=== PATIENT | male | born 1965 ===

== ENCOUNTER 2017-02-13 12:43 | Inpatient (IN) ==
[2017-02-13] MEDS ORDERED: ONDANSETRON 4 MG/2 ML VIAL IV PRN (15:40)
[2017-02-13] MEDS ORDERED: DEXTROSE 50% 25 GM/50 ML SYRINGE IV PRN (15:40)
[2017-02-13] MEDS ORDERED: GLUCAGON 1 MG VIAL IM PRN (15:40)
[2017-02-13] MEDS: ACETAMINOPHEN 325 MG TABLET PO PRN (15:53)
[2017-02-13 16:15] LABS: Basophils # 0.1 10*3/uL (0.0-0.2); Basophils % 0.3 % (0.0-0.8); Eosinophils # 0.1 10*3/uL (0.0-0.87); Eosinophils % 0.5 % (0.00-10.9); Hematocrit 33.3 VOL% (42.0-52.0); Hemoglobin 10.5 GM/DL (14.0-18.0); Immature Granulocytes % 0.9 %; Immature Granulocytes Absolute 0.16 #; Lymphocytes # 1.4 10*3/uL (1.4-4.0); Lymphocytes % 7.6 % (21.2-54.2); Mean Corpuscular HGB Conc 31.5 GM/DL (32-36); Mean Corpuscular Hemoglobin 27 PG (27-34); Mean Corpuscular Volume 86.3 FL (87-102); Mean Platelet Volume 9.4 FL (9.6-12.0); Monocytes # 1.7 10*3/uL (0.11-0.8); Monocytes % 9.2 % (1.7-12.7); Neutrophils # 14.8 10*3/uL (1.4-7.4); Neutrophils % 81.5 % (38.7-73.9); Platelet Count 293 T/CUMM (130-400); Red Blood Count 3.86 MC/CUMM (3.8-5.5); Red Cell Distribution Width 15.1 % (9.3-17.3); White Blood Count 18.2 T/CUMM (4-12)
--- NOTE | 2017-02-13 16:46 | Hospitalist History & Physical ---
Assessment and Plan - Time spent with patient Time spent with patient: Greater than 30 minutes (1) Diabetic foot infection Status: Acute Assessment and plan: Patient is a diabetic foot to the plantar surface of his right foot. The wound was recently debrided [address] Ramirez Crain. Patient does have leukocytosis (WBC 18.2) and bilateral lower extremities are warm to the touch. This could indicate developing cellulitis. We will get blood cultures 2. And venous Dopplers of the bilateral extremities for good measure. Current Visit: No (2) Leukocytosis Status: Acute Assessment and plan: As above. Will start empiric antibiotics and await results of blood cultures. Current Visit: Yes (3) Hypertension Status: Chronic Assessment and plan: Monitor BP. Continue home medications Current Visit: No Qualifiers: Hypertension type: essential hypertension Qualified Code(s): I10 - Essential (primary) hypertension (4) IDDM (insulin dependent diabetes mellitus) Status: Chronic Assessment and plan: Accu-Cheks ACHS. Sliding scale insulin per protocol. Hemoglobin A1c is 8.1%. Current Visit: No History of Present Illness Chief complaint: bilateral LE pain History of present illness: Mr. Melton is a 51 year old [place] male with a past medical history significant for diabetes mellitus, hypertension, rheumatoid arthritis and peripheral neuropathy who presents to [place] today as a transfer from [facility] for further evaluation of bilateral lower extremity pain status post debridement of ulcer of the right foot. Patient was recently seen by Dr. Ramirez Crain for debridement of right foot ulcer 6 days ago. He reports pain in his lower extremities bilaterally having onset last night. He describes this pain as "sharp" and ascends from the dorsum of his foot to the distal end of his patella. On exam, the patient does voice pain in his legs bilaterally, headache , subjective fever, chills, diarrhea and nausea. Lab work is significant for: WBC 18.2, hemoglobin 10.5, hematocrit 33.3, platelets 293, sodium 143, potassium 4.3, chloride 110, BUN 30, creatinine 1.3, serum glucose 108, hemoglobin A1c 8.1. Case has been discussed with Dr. Malave and the patient has been admitted to the hospital medicine service for further evaluation and treatment. We will consult wound care for management of diabetic ulcer. CODE STATUS was discussed; patient is a full code. Home medications have been reviewed and reconciled. Home Medications Medication Instructions Recorded Confirmed Type Aspirin [Ecotrin] 81 mg PO DAILY 01/28/16 08/08/16 History Gabapentin 600 mg PO TID 01/28/16 08/08/16 History Insulin Aspart [NovoLOG FlexPen] 20 unit SUBCUT DIRECTED 01/28/16 08/08/16 History Losartan Potassium 100 mg PO DAILY 01/28/16 08/08/16 History hydroCHLOROthiazide 25 mg PO DAILY 01/28/16 08/08/16 History [Hydrochlorothiazide] Omeprazole 20 mg PO DAILY 02/13/17 02/13/17 History amLODIPine [Norvasc] 5 mg PO DAILY 02/13/17 02/13/17 History traMADol TAB [Ultram] 50 mg PO QID PRN 02/13/17 02/13/17 History Allergies Allergy/AdvReac Type Severity Reaction Status Date / Time No Known Allergies Allergy Verified 08/08/16 08:01 Medical,Surgical,& Family Hx - Medical History Cardio: History of: Hypertension Neurology: History of: TIA (10/16/2015 AFFECTED LEFT SIDED) No history of: Seizures Endocrine: History of: Diabetes Mellitus (IDDM) Rheumatology: History of;: Rheumatoid Arthritis (Sees doctor in [place], middle fingers left hand) Gastrointestinal: History of: GERD (Takes "Opazol" (?)) Musculoskeletal: History of: Amputation (Bilateral great toe), Back/Neck Problems (Spondylosis of C4/5 and lower back) - Surgical History Abdominal Surgeries: Surgical HX of: Cholecystectomy, Hernia Repair (Upper and lower) Reproductive Surgeries: Patient denies;: Vasectomy Orthopedic Surgeries: Surgical HX of;: Orthopedic Surgery (ORIF Right foot bone (4/5th toes) KNEE SCOPES), Total Knee Replacement (Scope, bilateral knees) - Family History Family History: Reports;: Family Diabetes, Family Hypertension Comment Only: Family Anesthesia Reaction (denies) - Social History Smoking Status: Never smoker Frequency of Alcohol Use: None Type of Drug Use: None Marital Status: Lives With:: Spouse Functional capacity: independent ambulation 12 point system: reviewed and no additional remarkable complaints except as stated Exam - Constitutional Vitals: Period Temp Pulse Resp BP Sys/Khoury Pulse Ox Last 24 Hr 98.3 F 105 20 144/75 97 General appearance: mild distress, morbidly obese - Head Head exam: Present: normal inspection, normocephalic, atraumatic - Eye Eye exam: Present: EOMI Pupils: Present: MAXIMILIANO - ENT ENT exam: Present: normal exam, normal external ear exam - Neck Neck exam: Present: normal inspection. Absent: lymphadenopathy, thyromegaly - Respiratory Respiratory exam: Present: clear to auscultation bilaterally - Cardiovascular Cardiovascular exam: Present: tachycardia - GI/Abdominal GI/Abdominal exam: Present: normal bowel sounds, soft. Absent: distended, organomegaly, tenderness, rebound - Extremities Exam Extremities exam: Present: normal inspection, normal capillary refill, full ROM , other (warm to touch bilaterally). Absent: edema - Neurological Exam Neurological exam: Present: alert, oriented X3, CN II-XII intact, reflexes normal - Psychiatric Psychiatric exam: Present: normal affect, normal mood - Skin Skin exam: Present: cyanosis, erythema, mottled, rash Results - Labs CBC & BMP: 02/13/17 16:08 02/13/17 16:08
[2017-02-13 16:47] LABS: Calcium 8.1 MG/DL (8.5-10.1); Potassium 4.3 MMOL/L (3.5-5.1)
[2017-02-13] MEDS: INSULIN LISPRO 100 UNIT/ML SUBCUT SCH ×2 (17:44→21:03)
[2017-02-13] MEDS: HYDROmorphone 2 MG/1 ML VIAL IV PRN (19:40)
[2017-02-13] MEDS: PIPERACILLIN/TAZOBACTAM 3,375 MG in SODIUM CHLORIDE 0.9% 100 ML IV SCH (19:46)
--- NOTE | 2017-02-13 19:58 | Ultrasound Report ---
US venous doppler LE BI Indication: Lower extremity swelling and pain. Comparison: None. Technique: Using a transcutaneous probe, grayscale, spectral Doppler, and color Doppler images of the bilateral lower extremity venous structures were captured and stored. Grayscale images prior to and following compression were obtained. Interrogated venous structures include the bilateral common femoral vein, superficial femoral vein (proximal, mid, and distal), and popliteal vein. Findings: There is no evidence of thrombus within the interrogated venous structures. the interrogated venous segments demonstrate presence of both color flow and spectral flow. Impression: 1. No evidence of venous thrombosis. 02/13/2017 7:55 PM PROCEDURE INTERPRETED AT [facility] DEPARTMENT OF RADIOLOGY Final Report Signed by: Dr. Michele Willson
--- NOTE | 2017-02-13 20:06 | CT Report ---
CT lower leg RT w con Indication: Right lower leg pain and swelling. Comparison: None. Technique: Multiple contiguous axial images were obtained from the level of the femoral condyles through the foot following administration of intravenous contrast. No intravenous contrast was administered. Findings: Prior surgical repair of the fourth metatarsal is demonstrated some evidence of osseous bridging involving the base of the metatarsal and loss of joint space noted within the mid foot articulations. The third toe, second toe, and great toe as well as portions of the great toe and second toe metatarsals appear surgically absent. Portion of the third toe metatarsal may additionally be surgically absent. Soft tissue swelling overlying the stump of the foot may reflect infection. Bony structure of the tibia and fibula demonstrate no acute fractures. Soft tissues are grossly unremarkable. Impression: 1. No acute findings within the calf. 2. Prior repair of the right foot as detailed. 3. Infectious process involving the stump of the foot is not excluded. 02/13/2017 8:00 PM PROCEDURE INTERPRETED AT [facility] DEPARTMENT OF RADIOLOGY Final Report Signed by: Dr. Michele Willson
[2017-02-13] MEDS: PREGABALIN 75 MG CAPSULE PO SCH (21:02)
[2017-02-13] MEDS: ENOXAPARIN 40 MG/0.4 ML SYRINGE SUBCUT SCH (21:04)
[2017-02-14] MEDS: ACETAMINOPHEN 325 MG TABLET PO PRN ×2 (00:33→15:54)
[2017-02-14] MEDS: HYDROmorphone 2 MG/1 ML VIAL IV PRN ×4 (00:33→17:59)
[2017-02-14] MEDS: VANCOMYCIN INJ 1,500 MG in SODIUM CHLORIDE 0.9% 500 ML IV SCH ×2 (00:39→15:53)
[2017-02-14] MEDS: PIPERACILLIN/TAZOBACTAM 3,375 MG in SODIUM CHLORIDE 0.9% 100 ML IV SCH ×3 (03:54→18:31)
[2017-02-14 06:37] LABS: Risk Ratio 2.05; VLDL CHOLESTEROL 13.2 MG/DL
[2017-02-14] MEDS: INSULIN LISPRO 100 UNIT/ML SUBCUT SCH ×4 (07:09→21:10)
[2017-02-14] MEDS: PREGABALIN 75 MG CAPSULE PO SCH ×3 (08:07→21:07)
[2017-02-14] MEDS: PANTOPRAZOLE 40 MG TABLET PO SCH (08:07)
--- NOTE | 2017-02-14 14:30 | Magnetic Resonance Report ---
MR foot RT wo con Indication: Rule out osteomyelitis Comparison: CT dated February 13, 2017 Technique: Multiplanar magnetic resonance imaging of the right forefoot foot was performed without the use of intravenous contrast. Findings: Significant susceptibility artifact from metallic hardware within the forefoot significantly limits evaluation of the midfoot and metatarsal region. Prior amputation change of the first digit to the level of the tarsometatarsal joint. Prior amputation of the second and third digits to the distal metatarsal levels. Significant degenerative change of the midfoot suggested. Chronic appearing fracture deformity of the proximal phalanx of the fourth digit. Subcutaneous edema, most notably about the dorsal foot may reflect cellulitis. No definitive marrow abnormalities to suggest acute osteomyelitis. No evidence of abscess formation. IMPRESSION: Subcutaneous edema, most notably about the dorsal foot may reflect cellulitis. No definitive marrow abnormalities to suggest acute osteomyelitis. No evidence of abscess formation. Postsurgical change as above. Other/detailed findings as above. PROCEDURE INTERPRETED AT [facility] DEPARTMENT OF RADIOLOGY Final Report Signed by: Dr Jordan Solares
--- NOTE | 2017-02-14 15:16 | Hospitalist Progress Note ---
Assessment and Plan (1) Diabetic foot infection Status: Acute Assessment and plan: Patient likely have diabetic foot infection he has been extensively worked up with the venous Dopplers which is negative for DVT CT lower extremity did not show any acute findings. Soft tissue swelling overlying the stump of the foot and the infection was suspected but MRI has rule out any osteomyelitis Current Visit: No (2) Diabetes mellitus Status: Acute Assessment and plan: Patient is on sliding scale insulin I will start her on Lantus insulin 20 units at bedtime. He is on twice a day at home but I will order once a day to see how the sugars are especially when compliance at home is not known. I will check hemoglobin A1c also Current Visit: Yes (3) Hypertension Status: Chronic Assessment and plan: Start on losartan and amlodipine at home doses and watch blood pressure Current Visit: No Qualifiers: Hypertension type: essential hypertension Qualified Code(s): I10 - Essential (primary) hypertension Hospitalist: Subjective Interval history: Patient was admitted from [facility] for evaluation of right foot wound. He has a history of Transmetatarsal amputation of the right second and third toes last year on 01/29/2016. He has a wound on the foot and is being followed by Dr. Crain And had debridement of recently. He presented with the chills and pain on right foot started 2 nights ago he was noted to have a WBC count of 18.2 started on Vanco and Zosyn He still have chills but no fever has right foot pain but denies any drainage wound was dressed by wound care provider earlier Exam - Constitutional Vitals: Period Temp Pulse Resp BP Sys/Khoury Pulse Ox Last 24 Hr 97.8 F-100.4 F 93-108 16-20 126-161/79-96 95-97 General appearance: no acute distress, morbidly obese - Respiratory Respiratory exam: Present: clear to auscultation bilaterally. Absent: rales, rhonchi - Cardiovascular Cardiovascular exam: Present: regular rate and rhythm. Absent: tachycardia - GI/Abdominal GI/Abdominal exam: Present: normal bowel sounds, soft. Absent: distended, tenderness - Extremities Exam Extremities exam: Present: other (Swollen right foot with the ulcer at the base of distal foot with some necrotic tissue but no drainage) - Neurological Exam Neurological exam: Present: alert, oriented X3 Results - Labs CBC & BMP: 02/13/17 16:08 02/13/17 16:08 Lab Results: I have reviewed the past 24 hour labs
[2017-02-14] MEDS: amLODIPine 5 MG TABLET PO SCH (15:53)
[2017-02-14] MEDS ORDERED: INSULIN GLARGINE 100 UNIT/ML SUBCUT SCH (21:00)
[2017-02-14] MEDS: ENOXAPARIN 40 MG/0.4 ML SYRINGE SUBCUT SCH (21:07)
[2017-02-15] MEDS: HYDROmorphone 2 MG/1 ML VIAL IV PRN ×3 (03:00→13:43)
[2017-02-15] MEDS: VANCOMYCIN INJ 1,500 MG in SODIUM CHLORIDE 0.9% 500 ML IV SCH ×2 (03:06→15:30)
[2017-02-15] MEDS: INSULIN LISPRO 100 UNIT/ML SUBCUT SCH ×3 (08:06→17:28)
[2017-02-15] MEDS: PANTOPRAZOLE 40 MG TABLET PO SCH (08:12)
[2017-02-15] MEDS: amLODIPine 5 MG TABLET PO SCH (08:12)
[2017-02-15] MEDS: PIPERACILLIN/TAZOBACTAM 3,375 MG in SODIUM CHLORIDE 0.9% 100 ML IV SCH ×2 (08:13→16:22)
[2017-02-15 08:24] LABS: Basophils # 0.1 10*3/uL (0.0-0.2); Basophils % 0.6 % (0.0-0.8); Eosinophils # 0.6 10*3/uL (0.0-0.87); Eosinophils % 5.2 % (0.00-10.9); Hematocrit 31.5 VOL% (42.0-52.0); Hemoglobin 9.9 GM/DL (14.0-18.0); Immature Granulocytes % 0.5 %; Immature Granulocytes Absolute 0.05 #; Lymphocytes # 1.7 10*3/uL (1.4-4.0); Lymphocytes % 16.4 % (21.2-54.2); Mean Corpuscular HGB Conc 31.4 GM/DL (32-36); Mean Corpuscular Hemoglobin 27 PG (27-34); Mean Corpuscular Volume 86.3 FL (87-102); Mean Platelet Volume 9.3 FL (9.6-12.0); Monocytes # 0.9 10*3/uL (0.11-0.8); Monocytes % 8.5 % (1.7-12.7); Neutrophils # 7.3 10*3/uL (1.4-7.4); Neutrophils % 68.8 % (38.7-73.9); Platelet Count 273 T/CUMM (130-400); Red Blood Count 3.65 MC/CUMM (3.8-5.5); White Blood Count 10.6 T/CUMM (4-12)
[2017-02-15 08:58] LABS: Calcium 8.2 MG/DL (8.5-10.1); Magnesium 2.1 MG/DL (1.8-2.4); Osmolality,Calculated 284.3 MOS/KG (273-304); Potassium 4.1 MMOL/L (3.5-5.1)
[2017-02-15] MEDS ORDERED: LOSARTAN 50 MG TABLET PO SCH (09:00)
[2017-02-15] MEDS: PREGABALIN 75 MG CAPSULE PO SCH ×2 (09:45→15:30)
--- NOTE | 2017-02-15 10:41 | Discharge Summary ---
<Nura Franco - Last Filed: 02/15/17 12:28> Hospital Course - Hospital Course Hospital Course: Mr. Melton is a 51 year old [place] male with a past medical history significant for diabetes mellitus, hypertension, rheumatoid arthritis and peripheral neuropathy who presented to [place] on Monday02/13/2017 as a transfer from [facility] for further evaluation of bilateral lower extremity pain status post debridement of an ulcer of the right foot. Patient was recently seen by Dr. Ramirez Crain for debridement of right foot ulcer 6 days prior. He reported pain in his lower extremities bilaterally having onset Monday night. He described this pain as "sharp" and ascends from the dorsum of his foot to the distal end of his patella. On exam, the patient did voice pain in his legs bilaterally, headache, subjective fever, chills, diarrhea and nausea. Wound care was consulted to evaluate an care for the diabetic infection. WBC on admission was 18.2. Blood cultures were collected and have returned negative at 48 hours. Patient was started on vanc and zosyn with resultant WBC of 10.2 at the time of discharge. MRI of the foot did not find evidence of osteomyelitis. Venous doppler of bilateral LE found no evidence of DVT. At this time, the patient has reached maximum benefit from hospitalization and is stable for discharge. He should follow up with his PCP and Dr. Crain for continued care of his diabetes and ulcer. I have personally seen and examined this patient today. I agree with the below note as prepared by the advanced practice provider. I agree with the assessment and plan. The patient is being discharged home with prescriptions for oral antibiotics including Keflex and clindamycin. He will continue outpatient wound care with Dr. Crain. The redness and erythema surrounding the right lower extremity have resolved. He has no fever or chills. He was given a prescription for pain medication. - Time spent with patient Time with patient DS: Greater than 30 minutes Diagnosis - Discharge Diagnosis (1) Diabetic foot infection Status: Acute (2) Leukocytosis Status: Acute (3) Hypertension Status: Chronic (4) IDDM (insulin dependent diabetes mellitus) Status: Chronic Discharge Plan - Discharge Data Disposition: Disch To Home/Self Care - Discharge Medications New cephALEXin [Keflex] 500 mg PO Q8HR #21 capsule Clindamycin Cap [Cleocin Cap] 300 mg PO Q8HR #21 capsule HYDROcodone/ACETAMIN 7.5-325 [[place] 7.5-325] 1 tablet PO Q4H PRN #30 tablet PRN Reason: Pain Moderate (4-7) Insulin Glargine [Lantus] 20 unit SUBCUT BEDTIME #1 vial Continue Losartan Potassium 100 mg PO DAILY Insulin Aspart [NovoLOG FlexPen] 20 unit SUBCUT BID W/MEALS hydroCHLOROthiazide [Hydrochlorothiazide] 25 mg PO DAILY Gabapentin 600 mg PO TID Aspirin [Ecotrin] 81 mg PO DAILY amLODIPine [Norvasc] 5 mg PO DAILY Omeprazole 20 mg PO DAILY traMADol TAB [Ultram] 50 mg PO QID PRN PRN Reason: Pain - Follow Up or Referral Follow Up: Crain,Ramirez Singh MD [Physician] - - Forms/Instructions Instructions: Debridement (DC), Diabetic Foot Ulcers (DC) Exam - Constitutional Vitals: Period Temp Pulse Resp BP Sys/Khoury Pulse Ox Last 24 Hr 97.8 F-101.3 F 85-117 18-20 129-173/72-99 95-97 Discharge Results Procedures and tests throughout hospitalization: Pending Orders 02/13/17 16:58 Blood Culture Stat 02/15/17 14:30 Vancomycin,Trough Timed Labs on day of discharge: Labs from last 24 hours 02/15/17 02/15/17 02/15/17 11:12 08:16 08:16 WBC 10.6 D RBC 3.65 L Hgb 9.9 L Hct 31.5 L MCV 86.3 L MCH 27 MCHC 31.4 L RDW 15.0 Plt Count 273 MPV 9.3 L Neut % (Auto) 68.8 Lymph % (Auto) 16.4 L [place] % (Auto) 8.5 Eos % (Auto) 5.2 Baso % (Auto) 0.6 Neut # (Auto) 7.3 Lymph # (Auto) 1.7 [place] # (Auto) 0.9 H Eos # (Auto) 0.6 Baso # (Auto) 0.1 Immature Gran % 0.5 Nucleated RBC % 0.0 Immature Gran # 0.05 Nucleated RBCs # 0.00 Immature Plt Fraction 0.0 Sodium 141 Potassium 4.1 Chloride 108 H Carbon Dioxide 27 Anion Gap 10.1 BUN 20 H Creatinine 1.20 GFR Calculation 99 BUN/Creatinine Ratio 16.00 Glucose 111 H POC Glucose 170 H Hemoglobin A1c Calculated Osmolality 284.3 Calcium 8.2 L Magnesium 2.1 02/15/17 02/15/17 02/14/17 06:43 04:02 20:38 WBC RBC Hgb Hct MCV MCH MCHC RDW Plt Count MPV Neut % (Auto) Lymph % (Auto) [place] % (Auto) Eos % (Auto) Baso % (Auto) Neut # (Auto) Lymph # (Auto) [place] # (Auto) Eos # (Auto) Baso # (Auto) Immature Gran % Nucleated RBC % Immature Gran # Nucleated RBCs # Immature Plt Fraction Sodium Potassium Chloride Carbon Dioxide Anion Gap BUN Creatinine GFR Calculation BUN/Creatinine Ratio Glucose POC Glucose 128 H 147 H Hemoglobin A1c 7.4 H Calculated Osmolality Calcium Magnesium 02/14/17 15:57 WBC RBC Hgb Hct MCV MCH MCHC RDW Plt Count MPV Neut % (Auto) Lymph % (Auto) [place] % (Auto) Eos % (Auto) Baso % (Auto) Neut # (Auto) Lymph # (Auto) [place] # (Auto) Eos # (Auto) Baso # (Auto) Immature Gran % Nucleated RBC % Immature Gran # Nucleated RBCs # Immature Plt Fraction Sodium Potassium Chloride Carbon Dioxide Anion Gap BUN Creatinine GFR Calculation BUN/Creatinine Ratio Glucose POC Glucose 176 H Hemoglobin A1c Calculated Osmolality Calcium Magnesium Preliminary micro results at discharge 02/13/17 16:58 Blood Culture - Preliminary Blood No growth at 1 day 02/13/17 16:58 Blood Culture - Preliminary Blood No growth at 1 day DS: Provider Date of admission: 02/13/17 14:47 Primary care physician: Hugo Moser MD Attending physician on admission: Darren Steve MD Consults: 02/13/17 15:42 Consult to Wound Care - [place] [CONS] Routine Reason for Wound Care: Wound Care Management 02/13/17 19:02 Consult to Pharmacy [CONS] Routine Reason for Pharmacy Consult: Dose/Manage Vancomycin Discharging clinician: Nura GREENE <Lauryn Rhodes - Last Filed: 02/15/17 14:46> Hospital Course - Time spent with patient Time with patient DS: Greater than 30 minutes (Total discharge time for this patient, including [id number] time, clinical documentation, medication reconciliation, and discharge planning was 41 minutes.) Diagnosis - Discharge Diagnosis (1) Diabetic foot infection Status: Acute (2) IDDM (insulin dependent diabetes mellitus) Status: Chronic (3) Hypertension Status: Chronic Discharge Plan - Discharge Data Condition at Discharge: Stable Discharge Diet: advance to your usual diet Activity: resume usual activities as tolerated Hygiene: no restrictions Weight Bearing at Discharge: full weight bearing Contact your physician if you experience:: fever over 101, Nausea/Vomiting, Bleeding, pain uncontrolled by pain medications DS: Provider Expected date of discharge: 02/15/17
[2017-02-15 17:31] VITALS: BP 122/78
--- NOTE | 2017-02-21 08:36 | Physician Query Form ---
CLICK EDIT DOCUMENT TO SELECT QUERY ANSWER --> OK --> SIGN Nellie Garcia RN Clinical Medication Specialist W) [phone] (f) [phone] [email or web address] PROVIDERS: Make your selection(s) from the choices in EACH section by typing an "x" and enter comments in the comment section. Please use your independent medical judgment in providing your response. This request does not imply that any particular answer is desired or expected. CLINICAL INDICATORS: (Providers should not edit this section) Based on documentation of "History of TIA, affected left side" Please clarify the sequel of the TIA. Based on the above, could you clarify the appropriate diagnosis, if significant , that supports the above abnormalities and additional evaluation, monitoring, and/or treatment rendered: ( ) History of TIA with left side weakness ( ) History of TIA with left arm weakness ( ) History of TIA with left leg weakness (x ) Other, please specify: No residual symptoms ( ) Clinically unable to determine COMMENTS: PLEASE ALSO DOCUMENT RESPONSE IN PROGRESS NOTES AND/OR DISCHARGE SUMMARY Use of terms such as suspected, likely, or probable (associated with a specific diagnosis that is being evaluated, monitored, or treated as if it exists) are acceptable and can be restated in the discharge summary if not ruled out. MTDD
== END 2017-02-15 19:39 | disposition home or self-care (01) | DRG 380 ==
LOC: N.3E 14:26 → SUATTDRO 14:47
PROVIDERS: ADMIT Internal Medicine; ATTEND Family Medicine

== ENCOUNTER 2018-08-01 10:26 | Inpatient (IN) ==
[2018-08-01] MEDS ORDERED: GLUCAGON 1 MG VIAL IM PRN (16:47)
[2018-08-01] MEDS ORDERED: DEXTROSE 50% 25 GM/50 ML SYRINGE IV PRN (16:47)
[2018-08-01 18:26] LABS: Calcium 7.7 MG/DL (8.5-10.1); Osmolality,Calculated 296.7 MOS/KG (273-304); Potassium 4.9 MMOL/L (3.5-5.1)
[2018-08-01 18:27] LABS: Basophils # 0.1 10*3/uL (0.0-0.2); Basophils % 0.8 % (0.0-0.8); Eosinophils # 1.1 10*3/uL (0.0-0.87); Eosinophils % 12.6 % (0.00-10.9); Hematocrit 34.1 VOL% (42.0-52.0); Immature Granulocytes % 0.6 %; Immature Granulocytes Absolute 0.05 #; Lymphocytes # 1.4 10*3/uL (1.4-4.0); Lymphocytes % 15.5 % (21.2-54.2); Mean Corpuscular HGB Conc 29.3 GM/DL (32-36); Mean Corpuscular Hemoglobin 28 PG (27-34); Mean Corpuscular Volume 95.5 FL (87-102); Mean Platelet Volume 9.8 FL (9.6-12.0); Monocytes # 0.6 10*3/uL (0.11-0.8); Monocytes % 6.8 % (1.7-12.7); Neutrophils # 5.6 10*3/uL (1.4-7.4); Neutrophils % 63.7 % (38.7-73.9); Platelet Count 305 T/CUMM (130-400); Red Blood Count 3.57 MC/CUMM (3.8-5.5); Red Cell Distribution Width 13.2 % (9.3-17.3); White Blood Count 8.8 T/CUMM (4-12)
[2018-08-01 18:35] LABS: Eosinophils 20 % (0-10); Lymphocytes 12 % (20-55); Platelet Estimate Normal; Segmented Neutrophils 64 % (50-85)
[2018-08-01 18:36] LABS: Hypochromasia Slight; Macrocytosis Slight; Total Cells Counted 100
[2018-08-01] MEDS ORDERED: ONDANSETRON 4 MG/2 ML VIAL IV PRN (19:45)
[2018-08-01] MEDS: PIPERACILLIN/TAZOBACTAM 3,375 MG in SODIUM CHLORIDE 0.9% 100 ML IV SCH (19:54)
[2018-08-01] MEDS: MORPHINE 4 MG/1 ML VIAL IV PRN (20:33)
[2018-08-01] MEDS: VANCOMYCIN INJ 2,250 MG in SODIUM CHLORIDE 0.9% 500 ML IV SCH (22:49)
[2018-08-02] MEDS: MORPHINE 4 MG/1 ML VIAL IV PRN ×4 (00:44→23:05)
[2018-08-02] MEDS: PIPERACILLIN/TAZOBACTAM 3,375 MG in SODIUM CHLORIDE 0.9% 100 ML IV SCH ×3 (01:20→17:47)
[2018-08-02] MEDS ORDERED: hydrALAZINE 20 MG/1 ML VIAL IV PRN (01:33)
[2018-08-02] MEDS: SODIUM CHLORIDE 0.9% 1,000 ML IV SCH (04:46)
[2018-08-02] MEDS: INSULIN REGULAR 100 UNIT/ML SUBCUT SCH ×3 (06:00→17:47)
[2018-08-02] MEDS ORDERED: LIDOCAINE 1% 20 ML VIAL ONE (08:34)
[2018-08-02] MEDS ORDERED: SEVOFLURANE 1 UNIT/15 MINUTE INH ONE (09:45)
[2018-08-02] MEDS ORDERED: PROPOFOL 200 MG/20 ML VIAL IV ONE (09:45)
[2018-08-02] MEDS ORDERED: fentaNYL 100 MCG/2 ML VIAL ONE (09:45)
[2018-08-02] MEDS ORDERED: MIDAZOLAM 2 MG/2 ML VIAL ONE (09:45)
[2018-08-02] MEDS ORDERED: ONDANSETRON 4 MG/2 ML VIAL ONE (09:45)
[2018-08-02] MEDS ORDERED: SUCCINYLCHOLINE 200 MG/10 ML VIAL ONE (09:46)
[2018-08-02] MEDS ORDERED: PHENYLEPHRINE 1 MG/10 ML SYRINGE IV ONE (09:46)
[2018-08-02] MEDS: VANCOMYCIN INJ 2,250 MG in SODIUM CHLORIDE 0.9% 500 ML IV SCH (13:17)
[2018-08-03] MEDS: PIPERACILLIN/TAZOBACTAM 3,375 MG in SODIUM CHLORIDE 0.9% 100 ML IV SCH ×2 (01:00→09:55)
[2018-08-03] MEDS: INSULIN REGULAR 100 UNIT/ML SUBCUT SCH ×2 (01:01→06:33)
[2018-08-03] MEDS: SODIUM CHLORIDE 0.9% 1,000 ML IV SCH (02:29)
[2018-08-03] MEDS: MORPHINE 4 MG/1 ML VIAL IV PRN ×2 (03:01→07:57)
[2018-08-03 05:41] LABS: Calcium 7.7 MG/DL (8.5-10.1); Osmolality,Calculated 289.7 MOS/KG (273-304); Potassium 4.9 MMOL/L (3.5-5.1)
[2018-08-03 06:06] LABS: Basophils # 0.1 10*3/uL (0.0-0.2); Basophils % 0.9 % (0.0-0.8); Eosinophils # 1.1 10*3/uL (0.0-0.87); Eosinophils % 11.2 % (0.00-10.9); Immature Granulocytes % 0.6 %; Immature Granulocytes Absolute 0.06 #; Lymphocytes # 1.7 10*3/uL (1.4-4.0); Lymphocytes % 17.8 % (21.2-54.2); Mean Corpuscular HGB Conc 29.4 GM/DL (32-36); Mean Corpuscular Hemoglobin 28 PG (27-34); Mean Corpuscular Volume 93.7 FL (87-102); Monocytes # 0.7 10*3/uL (0.11-0.8); Monocytes % 7.3 % (1.7-12.7); Neutrophils % 62.2 % (38.7-73.9); Platelet Count 309 T/CUMM (130-400); Red Blood Count 3.63 MC/CUMM (3.8-5.5); Red Cell Distribution Width 13.5 % (9.3-17.3); White Blood Count 9.6 T/CUMM (4-12)
[2018-08-03] MEDS: VANCOMYCIN INJ 2,250 MG in SODIUM CHLORIDE 0.9% 500 ML IV SCH (06:30)
[2018-08-03 06:39] LABS: Anisocytosis Slight; Band Neutrophils 3 % (0-10); Eosinophils 13 % (0-10); Lymphocytes 18 % (20-55); Macrocytosis Slight; Platelet Estimate Normal; Polychromasia 1+; Segmented Neutrophils 59 % (50-85); Total Cells Counted 100
[2018-08-03 07:58] VITALS: BP 167/88
== END 2018-08-03 11:11 | disposition home or self-care (01) | DRG 314 ==
LOC: N.ADMINP 11:16 → N.3E 16:02
PROVIDERS: ADMIT Surgery; ATTEND Surgery

== ENCOUNTER 2020-07-02 03:32 | Inpatient (IN) ==
[2020-07-02] MEDS ORDERED: MORPHINE 4 MG/1 ML VIAL IV STA (03:49)
[2020-07-02] MEDS ORDERED: PIPERACILLIN/TAZOBACTAM 3,375 MG in SODIUM CHLORIDE 0.9% 100 ML IV STA (03:49)
[2020-07-02] MEDS ORDERED: FUROSEMIDE 100 MG/10 ML VIAL IV STA (03:49)
[2020-07-02] MEDS ORDERED: ONDANSETRON 4 MG/2 ML VIAL IV STA (03:49)
[2020-07-02] MEDS ORDERED: HYDROmorphone 2 MG/1 ML VIAL IV ONE (03:53)
[2020-07-02 04:18] LABS: Basophils # 0.1 10*3/uL (0.0-0.2); Basophils % 0.3 % (0.0-0.8); Eosinophils % 0.2 % (0.00-10.9); Hemoglobin 8.4 GM/DL (14.0-18.0); Immature Granulocytes % 2.4 %; Immature Granulocytes Absolute 0.57 #; Lymphocytes # 1.1 10*3/uL (1.4-4.0); Lymphocytes % 4.6 % (21.2-54.2); Mean Corpuscular Volume 87.9 FL (87-102); Monocytes % 4.4 % (1.7-12.7); NRBC # 0.03 10*3/uL; Neutrophils % 88.1 % (38.7-73.9); Platelet Count 310 T/CUMM (130-400); Red Cell Distribution Width 16.6 % (9.3-17.3); White Blood Count 23.6 T/CUMM (4-12)
[2020-07-02 04:24] LABS: INR 1.3; PT Patient Result 13.5 SECS (9.8-11.9)
[2020-07-02 04:35] LABS: Alanine Aminotransferase 15 U/L (16-61); Albumin 2.1 G/DL (3.4-5.0); Alkaline Phosphatase 118 U/L (45-117); Aspartate Amino Transferase 15 U/L (0-37); Bilirubin,Total < 0.39 MG/DL (0.2-1.0); Blood Urea Nitrogen 78 MG/DL (7-18); Calcium 7.4 MG/DL (8.5-10.1); Carbon Dioxide 14 MMOL/L (21-32); Estimated Glom Filtration Rate 11 ML/MIN; Glucose 139 MG/DL (74-106); Osmolality,Calculated 292.2 MOS/KG (273-304); Potassium 5.1 MMOL/L (3.5-5.1); Sodium 134 MMOL/L (136-145); Total Protein 7.5 G/DL (6.4-8.3); Uric Acid 7.7 MG/DL (3.5-7.2)
[2020-07-02 04:38] LABS: Troponin I 0.063 NG/ML (0.00-0.045)
[2020-07-02] MEDS ORDERED: MAGNESIUM SULF RIDER 2 GM in PREMIX 1 EACH IV STA (04:44)
[2020-07-02 04:49] LABS: Band Neutrophils 2 % (0-10); Lymphocytes 2 % (20-55); Platelet Estimate Normal; Segmented Neutrophils 93 % (50-85); Total Cells Counted 100
[2020-07-02 04:50] LABS: Hypochromasia Slight
[2020-07-02] MEDS ORDERED: GLUCAGON 1 MG VIAL IM PRN (04:59)
[2020-07-02] MEDS ORDERED: ONDANSETRON 4 MG/2 ML VIAL IV PRN (04:59)
[2020-07-02] MEDS ORDERED: DEXTROSE 50% 25 GM/50 ML VIAL IV PRN ×2 (04:59)
[2020-07-02] MEDS ORDERED: SODIUM CHLORIDE 0.9% 1,000 ML IV SCH ×2 (05:00→07:00)
[2020-07-02 05:13] LABS: ABG Base Excess -15.2 MMOL/L (-2.5-2.5); ABG HCO3 16.4 MMOL/L (20-26); ABG Oxygen Saturation 96.1 % (95-100); ABG PO2 115.6 MM HG (80-95); ABG TCO2 18.8 MMOL/L (23-27); Allen Test Positive
[2020-07-02 05:15] LABS: ABG PCO2 76.1 MM HG (35-48); ABG PH 6.952 (7.35-7.45)
[2020-07-02] MEDS ORDERED: SODIUM BICARBONATE 50 MEQ/50 ML VIAL IV STA (05:16)
[2020-07-02] MEDS ORDERED: SODIUM CHLORIDE 0.9% 1,000 ML IV STA (06:15)
[2020-07-02 06:17] LABS: Amorphous Crystals,Urine Occasional /HPF (Few); Bacteria,Urine Occasional /HPF (Few); Bilirubin,Urine Negative (Negative); Blood, Urine Moderate mg/dL (Negative); Glucose,Urine (UA) 50 mg/dL (Negative); Ketones,Urine Negative (Negative); Nitrite,Urine Negative (Negative); Protein,Urine >=500 MG/DL; RBC,Urine 38 /HPF (0-4); Squamous Epithelial Cell,Urine Occasional /HPF (0-10); Urine Appearance CLOUDY (Clear); Urine Color Yellow (Yellow); Urine Specific Gravity 1.013 (1.001-1.035); Urine Urobilinogen < 2.0 EU/DL (0.2-1.0)
[2020-07-02] MEDS ORDERED: EPINEPHrine 1 MG/10 ML SYRINGE ONE (07:31)
[2020-07-02] MEDS ORDERED: ETOMIDATE 20 MG/10 ML VIAL IV ONE (07:55)
[2020-07-02] MEDS ORDERED: ROCURONIUM 100 MG/10 ML VIAL IV ONE ×2 (07:55→09:35)
[2020-07-02] MEDS ORDERED: FUROSEMIDE 40 MG TABLET PO SCH (08:00)
[2020-07-02 08:54] LABS: Ferritin 92.8 ng/ml (26-388)
[2020-07-02 09:29] LABS: Basophils % 0.2 % (0.0-0.8); Hematocrit 26.5 VOL% (42.0-52.0); Hemoglobin 7.5 GM/DL (14.0-18.0); Immature Granulocytes % 2.3 %; Immature Granulocytes Absolute 0.57 #; Lymphocytes # 0.4 10*3/uL (1.4-4.0); Lymphocytes % 1.7 % (21.2-54.2); Mean Corpuscular HGB Conc 28.3 GM/DL (32-36); Mean Corpuscular Volume 89.8 FL (87-102); Mean Platelet Volume 9.5 FL (9.6-12.0); Monocytes % 4.1 % (1.7-12.7); NRBC # 0.03 10*3/uL; Neutrophils % 91.7 % (38.7-73.9); Platelet Count 271 T/CUMM (130-400); Red Blood Count 2.95 MC/CUMM (3.8-5.5); Red Cell Distribution Width 16.7 % (9.3-17.3); White Blood Count 24.7 T/CUMM (4-12)
[2020-07-02] MEDS ORDERED: INSULIN REGULAR 100 UNIT/ML IV ONE (09:37)
[2020-07-02 09:46] LABS: Band Neutrophils 1 % (0-10); Lymphocytes 1 % (20-55); Platelet Estimate Adequate; Segmented Neutrophils 94 % (50-85); Total Cells Counted 100
[2020-07-02 09:47] LABS: Burr Cells Slight; Hypochromasia 1+; Microcytosis 1+; Ovalocytes Slight
[2020-07-02 09:49] LABS: INR 1.3; PT Patient Result 13.8 SECS (9.8-11.9)
[2020-07-02 10:30] LABS: ABG Base Excess -12.4 MMOL/L (-2.5-2.5); ABG HCO3 14.6 MMOL/L (20-26); ABG Oxygen Saturation 99.2 % (95-100); ABG PCO2 35.2 MM HG (35-48); ABG PH 7.221 (7.35-7.45); ABG TCO2 13.8 MMOL/L (23-27); Allen Test Positive; Pt O2 Delivery Device Ventilator
[2020-07-02 11:22] LABS: Albumin 1.7 G/DL (3.4-5.0); Bilirubin,Total 0.6 MG/DL (0.2-1.0); Calcium 7.1 MG/DL (8.5-10.1); Osmolality,Calculated 308.5 MOS/KG (273-304); Potassium 4.5 MMOL/L (3.5-5.1); Total Protein 6.4 G/DL (6.4-8.3)
[2020-07-02] MEDS: INSULIN REGULAR 100 UNIT/ML SUBCUT SCH ×4 (12:05→17:45)
[2020-07-02] MEDS: DEXAMETHASONE 4 MG/1 ML VIAL IV SCH (12:06)
[2020-07-02] MEDS: ENOXAPARIN 30 MG/0.3 ML SYRINGE SUBCUT SCH (12:06)
[2020-07-02] MEDS: PANTOPRAZOLE 40 MG VIAL IV SCH (12:07)
[2020-07-02] MEDS: SODIUM BICARB INJ 150 MEQ in DEXTROSE 5% 850 ML IV SCH ×3 (12:07→22:10)
[2020-07-02] MEDS ORDERED: PHENYLEPHRINE DRIP 0 MG/0 ML PREMIX IV ONE (13:32)
[2020-07-02] MEDS ORDERED: FUROSEMIDE INJ 240 MG in SODIUM CHLORIDE 0.9% 50 ML IV ONE (14:30)
[2020-07-02] MEDS: GABAPENTIN 300 MG CAPSULE PO SCH ×2 (17:06→20:34)
[2020-07-02] MEDS: ASPIRIN CHEW 81 MG TABLET PO SCH (17:06)
[2020-07-02] MEDS: METOPROLOL SUCCINATE XL 25 MG TABLET PO SCH ×2 (17:06→20:34)
[2020-07-02] MEDS: PIPERACILLIN/TAZOBACTAM 3,375 MG in SODIUM CHLORIDE 0.9% 100 ML IV SCH (17:45)
[2020-07-02] MEDS: MENTHOL/ZINC OXIDE OINT 71 GM JAR TOP SCH ×2 (20:06→20:34)
[2020-07-02] MEDS: MORPHINE 4 MG/1 ML VIAL IV PRN (22:11)
[2020-07-03] MEDS: INSULIN REGULAR 100 UNIT/ML SUBCUT SCH ×4 (01:22→18:17)
[2020-07-03] MEDS: MORPHINE 4 MG/1 ML VIAL IV PRN ×5 (01:22→23:09)
[2020-07-03 03:58] LABS: ABG Base Excess -4.9 MMOL/L (-2.5-2.5); ABG HCO3 20.3 MMOL/L (20-26); ABG Oxygen Saturation 98.5 % (95-100); ABG PCO2 29.6 MM HG (35-48); ABG PH 7.415 (7.35-7.45); ABG TCO2 17.9 MMOL/L (23-27); Allen Test Positive; Pt O2 Delivery Device Ventilator
[2020-07-03 04:29] LABS: Basophils % 0.1 % (0.0-0.8); Hematocrit 22.1 VOL% (42.0-52.0); Immature Granulocytes % 1.1 %; Immature Granulocytes Absolute 0.23 #; Lymphocytes # 0.7 10*3/uL (1.4-4.0); Lymphocytes % 3.1 % (21.2-54.2); Mean Corpuscular HGB Conc 31.7 GM/DL (32-36); Mean Corpuscular Volume 82.2 FL (87-102); NRBC # 0.15 10*3/uL; Neutrophils % 91.7 % (38.7-73.9); Platelet Count 263 T/CUMM (130-400); Red Blood Count 2.69 MC/CUMM (3.8-5.5); Red Cell Distribution Width 16.5 % (9.3-17.3); White Blood Count 21.7 T/CUMM (4-12)
[2020-07-03 05:07] LABS: Band Neutrophils 3 % (0-10); Hypochromasia 1+; Lymphocytes 5 % (20-55); Nucleated Red Blood Cells 1 (0-5); Segmented Neutrophils 88 % (50-85); Total Cells Counted 100
[2020-07-03 05:08] LABS: Microcytosis 1+; Ovalocytes Slight; Target Cells Slight
[2020-07-03 05:16] LABS: Albumin 1.5 G/DL (3.4-5.0); Bilirubin,Total 1.1 MG/DL (0.2-1.0); Osmolality,Calculated 303.8 MOS/KG (273-304); Potassium 4.4 MMOL/L (3.5-5.1)
[2020-07-03] MEDS: PIPERACILLIN/TAZOBACTAM 3,375 MG in SODIUM CHLORIDE 0.9% 100 ML IV SCH ×2 (06:02→18:17)
[2020-07-03] MEDS: ENOXAPARIN 30 MG/0.3 ML SYRINGE SUBCUT SCH (08:38)
[2020-07-03] MEDS: MENTHOL/ZINC OXIDE OINT 71 GM JAR TOP SCH ×2 (08:39→20:36)
[2020-07-03] MEDS: DEXAMETHASONE 4 MG/1 ML VIAL IV SCH (08:39)
[2020-07-03] MEDS: ASPIRIN CHEW 81 MG TABLET PO SCH (08:39)
[2020-07-03] MEDS: SODIUM BICARB INJ 150 MEQ in DEXTROSE 5% 850 ML IV SCH ×2 (08:39→21:16)
[2020-07-03] MEDS: PANTOPRAZOLE 40 MG VIAL IV SCH (08:40)
[2020-07-03] MEDS: GABAPENTIN 300 MG CAPSULE PO SCH ×3 (08:40→20:28)
[2020-07-03] MEDS: METOPROLOL SUCCINATE XL 25 MG TABLET PO SCH ×2 (08:40→20:28)
[2020-07-03] MEDS: INSULIN GLARGINE 100 UNIT/ML SUBCUT SCH (09:19)
[2020-07-03] MEDS: metOLazone 5 MG TABLET PO SCH (09:20)
[2020-07-03] MEDS ORDERED: VANCOMYCIN INJ 2,000 MG in SODIUM CHLORIDE 0.9% 500 ML IV ONE (11:30)
[2020-07-03] MEDS ORDERED: VANCOMYCIN INJ 2,000 MG in SODIUM CHLORIDE 0.9% 500 ML IV PRN (12:38)
[2020-07-03] MEDS: FUROSEMIDE 100 MG/10 ML VIAL IV SCH (17:14)
[2020-07-04] MEDS: INSULIN REGULAR 100 UNIT/ML SUBCUT SCH ×4 (00:27→18:02)
[2020-07-04] MEDS: MELATONIN 3 MG TABLET PO PRN (01:11)
[2020-07-04] MEDS: PIPERACILLIN/TAZOBACTAM 3,375 MG in SODIUM CHLORIDE 0.9% 100 ML IV SCH ×2 (06:08→18:02)
[2020-07-04 06:34] LABS: Basophils % 0.1 % (0.0-0.8); Hematocrit 25.4 VOL% (42.0-52.0); Hemoglobin 7.4 GM/DL (14.0-18.0); Immature Granulocytes % 2.4 %; Immature Granulocytes Absolute 0.75 #; Lymphocytes # 0.7 10*3/uL (1.4-4.0); Lymphocytes % 2.2 % (21.2-54.2); Mean Corpuscular HGB Conc 29.1 GM/DL (32-36); Mean Corpuscular Volume 85.8 FL (87-102); Mean Platelet Volume 9.5 FL (9.6-12.0); Monocytes % 4.2 % (1.7-12.7); NRBC # 0.11 10*3/uL; Neutrophils % 91.1 % (38.7-73.9); Platelet Count 311 T/CUMM (130-400); Red Blood Count 2.96 MC/CUMM (3.8-5.5); Red Cell Distribution Width 17.1 % (9.3-17.3); White Blood Count 30.8 T/CUMM (4-12)
[2020-07-04 07:04] LABS: Calcium 6.9 MG/DL (8.5-10.1); Potassium 4.9 MMOL/L (3.5-5.1)
[2020-07-04] MEDS: ENOXAPARIN 30 MG/0.3 ML SYRINGE SUBCUT SCH (07:59)
[2020-07-04] MEDS: GABAPENTIN 300 MG CAPSULE PO SCH ×3 (08:00→21:48)
[2020-07-04] MEDS: INSULIN GLARGINE 100 UNIT/ML SUBCUT SCH (08:00)
[2020-07-04] MEDS: PANTOPRAZOLE 40 MG VIAL IV SCH (08:00)
[2020-07-04] MEDS: METOPROLOL SUCCINATE XL 25 MG TABLET PO SCH ×2 (08:00→21:48)
[2020-07-04] MEDS: metOLazone 5 MG TABLET PO SCH (08:00)
[2020-07-04] MEDS: FUROSEMIDE 100 MG/10 ML VIAL IV SCH ×2 (08:00→15:48)
[2020-07-04] MEDS: DEXAMETHASONE 4 MG/1 ML VIAL IV SCH (08:00)
[2020-07-04] MEDS: ASPIRIN CHEW 81 MG TABLET PO SCH (08:00)
[2020-07-04 08:12] LABS: Anisocytosis 1+; Band Neutrophils 22 % (0-10); Lymphocytes 1 % (20-55); Platelet Estimate Normal; Segmented Neutrophils 74 % (50-85); Total Cells Counted 100
[2020-07-04 08:13] LABS: Burr Cells Few
[2020-07-04] MEDS: MENTHOL/ZINC OXIDE OINT 71 GM JAR TOP SCH ×2 (10:24→21:51)
[2020-07-04 10:46] LABS: ABG Base Excess -4.8 MMOL/L (-2.5-2.5); ABG HCO3 20.4 MMOL/L (20-26); ABG PCO2 63.6 MM HG (35-48); ABG TCO2 23.1 MMOL/L (23-27)
[2020-07-04 11:14] LABS: ABG PH 7.184 (7.35-7.45)
[2020-07-04] MEDS: SODIUM BICARB INJ 150 MEQ in DEXTROSE 5% 850 ML IV SCH (11:44)
[2020-07-04] MEDS: MORPHINE 4 MG/1 ML VIAL IV PRN (12:15)
[2020-07-04 13:15] LABS: ABG Base Excess -4.5 MMOL/L (-2.5-2.5); ABG HCO3 20.7 MMOL/L (20-26); ABG Oxygen Saturation 98.4 % (95-100); ABG PCO2 58.7 MM HG (35-48); ABG PH 7.212 (7.35-7.45); ABG TCO2 22.7 MMOL/L (23-27)
[2020-07-04] MEDS: HALOPERIDOL 5 MG/ML AMP IV PRN (18:03)
[2020-07-05] MEDS: INSULIN REGULAR 100 UNIT/ML SUBCUT SCH ×4 (00:33→18:12)
[2020-07-05] MEDS: SODIUM BICARB INJ 150 MEQ in DEXTROSE 5% 850 ML IV SCH ×2 (00:57→13:08)
[2020-07-05] MEDS: HALOPERIDOL 5 MG/ML AMP IV PRN (02:18)
[2020-07-05 04:10] LABS: Basophils % 0.1 % (0.0-0.8); Hematocrit 24.1 VOL% (42.0-52.0); Immature Granulocytes % 2.9 %; Immature Granulocytes Absolute 0.68 #; Lymphocytes # 0.7 10*3/uL (1.4-4.0); Lymphocytes % 2.7 % (21.2-54.2); Mean Platelet Volume 9.9 FL (9.6-12.0); Monocytes % 3.9 % (1.7-12.7); NRBC # 0.19 10*3/uL; Neutrophils % 90.4 % (38.7-73.9); Platelet Count 309 T/CUMM (130-400); Red Blood Count 2.77 MC/CUMM (3.8-5.5); Red Cell Distribution Width 17.1 % (9.3-17.3); White Blood Count 23.9 T/CUMM (4-12)
[2020-07-05 04:18] LABS: Calcium 6.3 MG/DL (8.5-10.1); Potassium 4.9 MMOL/L (3.5-5.1)
[2020-07-05 04:28] LABS: ABG Base Excess -3.2 MMOL/L (-2.5-2.5); ABG HCO3 21.6 MMOL/L (20-26); ABG Oxygen Saturation 87.5 % (95-100); ABG PO2 65.3 MM HG (80-95); ABG TCO2 25.2 MMOL/L (23-27); Allen Test Positive
[2020-07-05 04:37] LABS: ABG PH 7.174 (7.35-7.45)
[2020-07-05 06:17] LABS: Anisocytosis 2+; Band Neutrophils 13 % (0-10); Lymphocytes 2 % (20-55); Platelet Estimate Normal; Polychromasia Slight; Segmented Neutrophils 81 % (50-85); Target Cells Few; Total Cells Counted 100
[2020-07-05] MEDS: PIPERACILLIN/TAZOBACTAM 3,375 MG in SODIUM CHLORIDE 0.9% 100 ML IV SCH ×2 (06:30→18:12)
[2020-07-05] MEDS: FUROSEMIDE 100 MG/10 ML VIAL IV SCH ×3 (09:25→23:18)
[2020-07-05] MEDS: metOLazone 5 MG TABLET PO SCH (09:45)
[2020-07-05 10:08] LABS: ABG Base Excess -3.1 MMOL/L (-2.5-2.5); ABG HCO3 21.8 MMOL/L (20-26); ABG Oxygen Saturation 96.2 % (95-100); ABG PCO2 67.5 MM HG (35-48); ABG TCO2 24.3 MMOL/L (23-27); Allen Test Positive; Pt O2 Delivery Device BIPAP
[2020-07-05] MEDS ORDERED: metOLazone 5 MG TABLET PO ONE (10:11)
[2020-07-05 10:14] LABS: ABG PH 7.206 (7.35-7.45)
[2020-07-05] MEDS: MENTHOL/ZINC OXIDE OINT 71 GM JAR TOP SCH ×2 (10:23→23:09)
[2020-07-05] MEDS: DEXAMETHASONE 4 MG/1 ML VIAL IV SCH (10:23)
[2020-07-05] MEDS: ENOXAPARIN 30 MG/0.3 ML SYRINGE SUBCUT SCH (10:23)
[2020-07-05] MEDS: ASPIRIN CHEW 81 MG TABLET PO SCH (10:23)
[2020-07-05] MEDS: METOPROLOL SUCCINATE XL 25 MG TABLET PO SCH ×2 (10:24→23:08)
[2020-07-05] MEDS: PANTOPRAZOLE 40 MG VIAL IV SCH (10:24)
[2020-07-05] MEDS: INSULIN GLARGINE 100 UNIT/ML SUBCUT SCH (10:24)
[2020-07-05] MEDS: GABAPENTIN 300 MG CAPSULE PO SCH ×3 (10:24→23:08)
[2020-07-05] MEDS ORDERED: VANCOMYCIN INJ 2,000 MG in SODIUM CHLORIDE 0.9% 500 ML IV ONE (14:00)
[2020-07-05] MEDS: MORPHINE 4 MG/1 ML VIAL IV PRN (18:20)
[2020-07-06] MEDS: INSULIN REGULAR 100 UNIT/ML SUBCUT SCH ×4 (01:06→17:33)
[2020-07-06] MEDS: SODIUM BICARB INJ 150 MEQ in DEXTROSE 5% 850 ML IV SCH ×3 (05:49→19:18)
[2020-07-06] MEDS: PIPERACILLIN/TAZOBACTAM 3,375 MG in SODIUM CHLORIDE 0.9% 100 ML IV SCH ×2 (06:13→17:47)
[2020-07-06] MEDS: DEXAMETHASONE 4 MG/1 ML VIAL IV SCH (08:04)
[2020-07-06] MEDS: ASPIRIN CHEW 81 MG TABLET PO SCH (08:04)
[2020-07-06] MEDS: METOPROLOL SUCCINATE XL 25 MG TABLET PO SCH ×2 (08:04→20:23)
[2020-07-06] MEDS: ENOXAPARIN 30 MG/0.3 ML SYRINGE SUBCUT SCH (08:04)
[2020-07-06] MEDS: PANTOPRAZOLE 40 MG VIAL IV SCH (08:04)
[2020-07-06] MEDS: INSULIN GLARGINE 100 UNIT/ML SUBCUT SCH (08:04)
[2020-07-06] MEDS: GABAPENTIN 300 MG CAPSULE PO SCH ×3 (08:04→20:24)
[2020-07-06] MEDS: MENTHOL/ZINC OXIDE OINT 71 GM JAR TOP SCH ×2 (08:04→20:24)
[2020-07-06] MEDS: FUROSEMIDE 100 MG/10 ML VIAL IV SCH (08:05)
[2020-07-06] MEDS: metOLazone 5 MG TABLET PO SCH (08:05)
[2020-07-06 09:50] LABS: Calcium 6.1 MG/DL (8.5-10.1); Potassium 4.4 MMOL/L (3.5-5.1)
[2020-07-06] MEDS: FUROSEMIDE IV SCH ×2 (09:55→15:56)
[2020-07-06] MEDS: SODIUM CHLORIDE 0.9% IV SCH ×2 (09:55→15:56)
[2020-07-06 11:09] LABS: Hepatitis B Core IgM Quant 0.15 Index; Hepatitis B Surface Ag Quant < 0.10 Index; Hepatitis B Surface Ag Result Negative (Negative); Hepatitis C Virus Ab Quant 0.05 Index; Hepatitis C Virus Ab Result Negative (Negative)
[2020-07-06] MEDS ORDERED: CALCIUM CARBONATE CHEW 500 MG TABLET PO ONE (14:00)
[2020-07-06] MEDS: ALBUTEROL/IPRATROPIUM 3 ML NEB RESP TX SCH (19:35)
[2020-07-06] MEDS: MORPHINE 4 MG/1 ML VIAL IV PRN (22:07)
[2020-07-07] MEDS: INSULIN REGULAR 100 UNIT/ML SUBCUT SCH ×5 (00:08→20:30)
[2020-07-07] MEDS: ALBUTEROL/IPRATROPIUM 3 ML NEB RESP TX SCH ×4 (00:48→19:23)
[2020-07-07] MEDS: SODIUM BICARB INJ 150 MEQ in DEXTROSE 5% 850 ML IV SCH ×2 (01:31→06:50)
[2020-07-07] MEDS ORDERED: CALCIUM CARBONATE CHEW 500 MG TABLET PO ONE (01:46)
[2020-07-07] MEDS ORDERED: HALOPERIDOL 5 MG/ML AMP IM PRN (04:30)
[2020-07-07] MEDS: PIPERACILLIN/TAZOBACTAM 3,375 MG in SODIUM CHLORIDE 0.9% 100 ML IV SCH ×2 (05:19→18:52)
[2020-07-07 06:16] LABS: Calcium 6.4 MG/DL (8.5-10.1); Osmolality,Calculated 296.2 MOS/KG (273-304); Potassium 4.3 MMOL/L (3.5-5.1)
[2020-07-07] MEDS: PANTOPRAZOLE 40 MG VIAL IV SCH (08:18)
[2020-07-07] MEDS: ENOXAPARIN 30 MG/0.3 ML SYRINGE SUBCUT SCH (08:18)
[2020-07-07] MEDS: ACETAMINOPHEN 325 MG TABLET PO PRN (08:19)
[2020-07-07] MEDS: ASPIRIN CHEW 81 MG TABLET PO SCH (08:19)
[2020-07-07] MEDS: metOLazone 5 MG TABLET PO SCH (08:19)
[2020-07-07] MEDS: METOPROLOL SUCCINATE XL 25 MG TABLET PO SCH ×2 (08:20→20:52)
[2020-07-07] MEDS: INSULIN GLARGINE 100 UNIT/ML SUBCUT SCH (08:20)
[2020-07-07] MEDS: GABAPENTIN 300 MG CAPSULE PO SCH ×3 (08:29→20:52)
[2020-07-07] MEDS: MENTHOL/ZINC OXIDE OINT 71 GM JAR TOP SCH ×2 (08:29→20:52)
[2020-07-07] MEDS: SODIUM BICARBONATE 650 MG TABLET PO SCH ×3 (08:43→20:52)
[2020-07-07] MEDS ORDERED: HEPARIN 10,000 UNIT/10 ML VIAL IV SCH (09:00)
[2020-07-07] MEDS ORDERED: VANCOMYCIN INJ 1,250 MG in SODIUM CHLORIDE 0.9% 250 ML IV PRN (13:00)
[2020-07-07] MEDS ORDERED: VANCOMYCIN INJ 1,250 MG in SODIUM CHLORIDE 0.9% 250 ML IV ONE (17:00)
[2020-07-08] MEDS: ALBUTEROL/IPRATROPIUM 3 ML NEB RESP TX SCH ×4 (01:02→19:18)
[2020-07-08 05:21] LABS: Basophils % 0.1 % (0.0-0.8); Eosinophils % 5.4 % (0.00-10.9); Hematocrit 23.5 VOL% (42.0-52.0); Hemoglobin 6.8 GM/DL (14.0-18.0); Lymphocytes # 1.4 10*3/uL (1.4-4.0); Lymphocytes % 7.8 % (21.2-54.2); Mean Corpuscular HGB Conc 28.9 GM/DL (32-36); Mean Platelet Volume 9.4 FL (9.6-12.0); Monocytes % 6.4 % (1.7-12.7); NRBC # 0.06 10*3/uL; Neutrophils % 75.3 % (38.7-73.9); Platelet Count 281 T/CUMM (130-400); Red Blood Count 2.67 MC/CUMM (3.8-5.5); Red Cell Distribution Width 16.6 % (9.3-17.3); White Blood Count 18.1 T/CUMM (4-12)
[2020-07-08 05:34] LABS: Calcium 6.7 MG/DL (8.5-10.1); Potassium 4.6 MMOL/L (3.5-5.1)
[2020-07-08 05:48] LABS: Band Neutrophils 1 % (0-10); Eosinophils 4 % (0-10); Hypochromasia 2+; Lymphocytes 6 % (20-55); Microcytosis 1+; Ovalocytes Slight; Platelet Estimate Adequate; Segmented Neutrophils 80 % (50-85); Total Cells Counted 100
[2020-07-08] MEDS: PIPERACILLIN/TAZOBACTAM 3,375 MG in SODIUM CHLORIDE 0.9% 100 ML IV SCH ×2 (06:01→18:28)
[2020-07-08] MEDS: INSULIN REGULAR 100 UNIT/ML SUBCUT SCH ×4 (08:30→22:23)
[2020-07-08] MEDS: HEPARIN 5,000 UNIT/1 ML VIAL SUBCUT SCH ×2 (12:37→20:31)
[2020-07-08] MEDS: INSULIN GLARGINE 100 UNIT/ML SUBCUT SCH (12:37)
[2020-07-08] MEDS: SODIUM BICARBONATE 650 MG TABLET PO SCH ×3 (12:37→20:31)
[2020-07-08] MEDS: GABAPENTIN 300 MG CAPSULE PO SCH ×3 (12:37→20:31)
[2020-07-08] MEDS: METOPROLOL SUCCINATE XL 25 MG TABLET PO SCH ×2 (12:39→20:31)
[2020-07-08] MEDS: FAMOTIDINE 20 MG TABLET PO SCH (12:56)
[2020-07-08] MEDS: MENTHOL/ZINC OXIDE OINT 71 GM JAR TOP SCH (12:56)
[2020-07-08] MEDS: ASPIRIN CHEW 81 MG TABLET PO SCH (12:56)
[2020-07-08] MEDS: metOLazone 5 MG TABLET PO SCH (12:57)
[2020-07-08] MEDS: ENOXAPARIN 30 MG/0.3 ML SYRINGE SUBCUT SCH (13:22)
[2020-07-08] MEDS ORDERED: VANCOMYCIN INJ 1,250 MG in SODIUM CHLORIDE 0.9% 250 ML IV ONE (17:00)
[2020-07-09] MEDS: ALBUTEROL/IPRATROPIUM 3 ML NEB RESP TX SCH ×4 (00:01→20:15)
[2020-07-09 07:33] LABS: Calcium 7.2 MG/DL (8.5-10.1); Potassium 4.5 MMOL/L (3.5-5.1)
[2020-07-09] MEDS: INSULIN REGULAR 100 UNIT/ML SUBCUT SCH ×4 (08:16→20:39)
[2020-07-09] MEDS ORDERED: EPOETIN ALFA-EPBX 10,000 UNIT/ML VIAL IV PRN (08:36)
[2020-07-09] MEDS: metOLazone 5 MG TABLET PO SCH (08:46)
[2020-07-09] MEDS: ASPIRIN CHEW 81 MG TABLET PO SCH (08:46)
[2020-07-09] MEDS: GABAPENTIN 300 MG CAPSULE PO SCH ×3 (08:47→20:39)
[2020-07-09] MEDS: SODIUM BICARBONATE 650 MG TABLET PO SCH ×2 (08:47→14:38)
[2020-07-09] MEDS: INSULIN GLARGINE 100 UNIT/ML SUBCUT SCH (08:47)
[2020-07-09] MEDS: METOPROLOL SUCCINATE XL 25 MG TABLET PO SCH ×2 (08:47→20:39)
[2020-07-09] MEDS: FAMOTIDINE 20 MG TABLET PO SCH (08:47)
[2020-07-09] MEDS: MENTHOL/ZINC OXIDE OINT 71 GM JAR TOP SCH ×3 (08:48→23:01)
[2020-07-09] MEDS: HEPARIN 5,000 UNIT/1 ML VIAL SUBCUT SCH ×2 (08:49→20:38)
[2020-07-09] MEDS: PIPERACILLIN/TAZOBACTAM 3,375 MG in SODIUM CHLORIDE 0.9% 100 ML IV SCH ×2 (08:49→18:11)
[2020-07-09 08:54] LABS: % Iron Saturation 21.5 % (18-50)
[2020-07-09] MEDS ORDERED: NITROGLYCERIN SL 0.4 MG TABLET SL ONE (17:24)
[2020-07-09] MEDS ORDERED: NITROGLYCERIN SL 0.4 MG TABLET SL PRN (17:28)
[2020-07-09] MEDS: ACETAMINOPHEN 325 MG TABLET PO PRN (18:17)
[2020-07-10] MEDS: ACETAMINOPHEN 325 MG TABLET PO PRN ×2 (00:05→06:28)
[2020-07-10] MEDS: MELATONIN 3 MG TABLET PO PRN (00:12)
[2020-07-10] MEDS: ALBUTEROL/IPRATROPIUM 3 ML NEB RESP TX SCH ×4 (02:31→19:12)
[2020-07-10 06:11] LABS: Basophils % 0.2 % (0.0-0.8); Eosinophils # 1.1 10*3/uL (0.0-0.87); Eosinophils % 7.3 % (0.00-10.9); Hematocrit 23.2 VOL% (42.0-52.0); Hemoglobin 6.8 GM/DL (14.0-18.0); Immature Granulocytes % 4.2 %; Immature Granulocytes Absolute 0.61 #; Lymphocytes # 0.8 10*3/uL (1.4-4.0); Lymphocytes % 5.6 % (21.2-54.2); Mean Corpuscular HGB Conc 29.3 GM/DL (32-36); Mean Corpuscular Volume 87.2 FL (87-102); Mean Platelet Volume 9.7 FL (9.6-12.0); Monocytes % 5.9 % (1.7-12.7); NRBC # 0.02 10*3/uL; Neutrophils % 76.8 % (38.7-73.9); Platelet Count 299 T/CUMM (130-400); Red Blood Count 2.66 MC/CUMM (3.8-5.5); Red Cell Distribution Width 16.9 % (9.3-17.3); White Blood Count 14.5 T/CUMM (4-12)
[2020-07-10 06:15] LABS: Band Neutrophils 3 % (0-10); Eosinophils 6 % (0-10); Lymphocytes 6 % (20-55); Metamyelocytes 2 %; Platelet Estimate Normal; Segmented Neutrophils 78 % (50-85); Total Cells Counted 100
[2020-07-10 06:16] LABS: Calcium 7.3 MG/DL (8.5-10.1); Osmolality,Calculated 303.5 MOS/KG (273-304); Potassium 4.1 MMOL/L (3.5-5.1)
[2020-07-10 06:20] LABS: Albumin 1.4 G/DL (3.4-5.0); Bilirubin,Total 0.9 MG/DL (0.2-1.0); Calcium 7.2 MG/DL (8.5-10.1); Osmolality,Calculated 304.5 MOS/KG (273-304); Potassium 4.1 MMOL/L (3.5-5.1)
[2020-07-10] MEDS ORDERED: SODIUM CHLORIDE 0.9% 1,000 ML IV PRN (08:51)
[2020-07-10] MEDS: INSULIN GLARGINE 100 UNIT/ML SUBCUT SCH (09:32)
[2020-07-10] MEDS: GABAPENTIN 300 MG CAPSULE PO SCH ×3 (09:33→21:33)
[2020-07-10] MEDS: METOPROLOL SUCCINATE XL 25 MG TABLET PO SCH ×2 (09:33→21:33)
[2020-07-10] MEDS: metOLazone 5 MG TABLET PO SCH (09:33)
[2020-07-10] MEDS: FAMOTIDINE 20 MG TABLET PO SCH (09:34)
[2020-07-10] MEDS: HEPARIN 5,000 UNIT/1 ML VIAL SUBCUT SCH ×2 (09:34→21:31)
[2020-07-10] MEDS: INSULIN REGULAR 100 UNIT/ML SUBCUT SCH ×4 (09:35→23:37)
[2020-07-10] MEDS: ASPIRIN CHEW 81 MG TABLET PO SCH (09:36)
[2020-07-10] MEDS ORDERED: VANCOMYCIN INJ 1,250 MG in SODIUM CHLORIDE 0.9% 250 ML IV PRN (10:25)
[2020-07-10] MEDS: MENTHOL/ZINC OXIDE OINT 71 GM JAR TOP SCH ×2 (12:00→21:32)
[2020-07-10] MEDS: MORPHINE 4 MG/1 ML VIAL IV PRN ×3 (12:01→23:37)
[2020-07-10] MEDS ORDERED: VANCOMYCIN INJ 1,250 MG in SODIUM CHLORIDE 0.9% 250 ML IV ONE ×2 (17:00→18:00)
[2020-07-10] MEDS: PIPERACILLIN/TAZOBACTAM 3,375 MG in SODIUM CHLORIDE 0.9% 100 ML IV SCH (17:07)
[2020-07-10] MEDS: DICLOFENAC 1.3% PATCH 5/PACK TRANSDERM SCH (21:32)
[2020-07-11] MEDS: ALBUTEROL/IPRATROPIUM 3 ML NEB RESP TX SCH ×4 (01:30→20:37)
[2020-07-11] MEDS: PIPERACILLIN/TAZOBACTAM 3,375 MG in SODIUM CHLORIDE 0.9% 100 ML IV SCH ×2 (05:34→16:34)
[2020-07-11] MEDS: MORPHINE 4 MG/1 ML VIAL IV PRN ×3 (05:35→22:48)
[2020-07-11 08:58] LABS: Hematocrit 28.6 VOL% (42.0-52.0)
[2020-07-11 09:04] LABS: Hemoglobin 8.2 GM/DL (14.0-18.0)
[2020-07-11] MEDS: GABAPENTIN 300 MG CAPSULE PO SCH ×3 (09:08→22:48)
[2020-07-11] MEDS: HEPARIN 5,000 UNIT/1 ML VIAL SUBCUT SCH ×2 (09:08→22:46)
[2020-07-11] MEDS: ASPIRIN CHEW 81 MG TABLET PO SCH (09:08)
[2020-07-11] MEDS: metOLazone 5 MG TABLET PO SCH (09:08)
[2020-07-11] MEDS: METOPROLOL SUCCINATE XL 25 MG TABLET PO SCH ×2 (09:09→22:48)
[2020-07-11] MEDS: FAMOTIDINE 20 MG TABLET PO SCH (09:09)
[2020-07-11] MEDS: INSULIN REGULAR 100 UNIT/ML SUBCUT SCH ×4 (09:10→22:47)
[2020-07-11] MEDS: MENTHOL/ZINC OXIDE OINT 71 GM JAR TOP SCH ×2 (09:10→22:46)
[2020-07-11] MEDS: INSULIN GLARGINE 100 UNIT/ML SUBCUT SCH (09:11)
[2020-07-11] MEDS: DICLOFENAC 1.3% PATCH 5/PACK TRANSDERM SCH ×2 (09:11→22:46)
[2020-07-12] MEDS: ALBUTEROL/IPRATROPIUM 3 ML NEB RESP TX SCH ×4 (01:22→19:59)
[2020-07-12] MEDS: PIPERACILLIN/TAZOBACTAM 3,375 MG in SODIUM CHLORIDE 0.9% 100 ML IV SCH ×2 (04:40→17:18)
[2020-07-12 07:39] LABS: Calcium 6.7 MG/DL (8.5-10.1); Osmolality,Calculated 287.2 MOS/KG (273-304); Potassium 4.2 MMOL/L (3.5-5.1)
[2020-07-12 07:50] LABS: Basophils % 0.2 % (0.0-0.8); Eosinophils # 0.7 10*3/uL (0.0-0.87); Eosinophils % 5.5 % (0.00-10.9); Hematocrit 26.2 VOL% (42.0-52.0); Immature Granulocytes % 2.3 %; Lymphocytes # 1.3 10*3/uL (1.4-4.0); Lymphocytes % 9.8 % (21.2-54.2); Mean Corpuscular HGB Conc 27.9 GM/DL (32-36); Mean Corpuscular Volume 92.9 FL (87-102); Mean Platelet Volume 9.7 FL (9.6-12.0); Monocytes % 9.4 % (1.7-12.7); Neutrophils % 72.8 % (38.7-73.9); Platelet Count 299 T/CUMM (130-400); Red Blood Count 2.82 MC/CUMM (3.8-5.5); Red Cell Distribution Width 16.7 % (9.3-17.3); White Blood Count 13.3 T/CUMM (4-12)
[2020-07-12 07:51] LABS: Hemoglobin 7.3 GM/DL (14.0-18.0)
[2020-07-12 08:20] LABS: Hypochromasia 1+; Microcytosis 1+
[2020-07-12 08:21] LABS: Ovalocytes Slight; Platelet Estimate Normal
[2020-07-12] MEDS: INSULIN GLARGINE 100 UNIT/ML SUBCUT SCH (09:10)
[2020-07-12] MEDS: ASPIRIN CHEW 81 MG TABLET PO SCH (09:11)
[2020-07-12] MEDS: GABAPENTIN 300 MG CAPSULE PO SCH ×3 (09:11→20:53)
[2020-07-12] MEDS: HEPARIN 5,000 UNIT/1 ML VIAL SUBCUT SCH ×2 (09:11→20:54)
[2020-07-12] MEDS: METOPROLOL SUCCINATE XL 25 MG TABLET PO SCH ×2 (09:11→20:53)
[2020-07-12] MEDS: metOLazone 5 MG TABLET PO SCH (09:11)
[2020-07-12] MEDS: FAMOTIDINE 20 MG TABLET PO SCH (09:11)
[2020-07-12] MEDS: INSULIN REGULAR 100 UNIT/ML SUBCUT SCH ×4 (09:12→21:06)
[2020-07-12] MEDS: MORPHINE 4 MG/1 ML VIAL IV PRN ×2 (09:20→21:27)
[2020-07-12] MEDS: DICLOFENAC 1.3% PATCH 5/PACK TRANSDERM SCH ×2 (10:03→20:54)
[2020-07-12] MEDS: MENTHOL/ZINC OXIDE OINT 71 GM JAR TOP SCH ×2 (10:03→21:10)
[2020-07-13] MEDS: ALBUTEROL/IPRATROPIUM 3 ML NEB RESP TX SCH ×4 (00:42→19:12)
[2020-07-13] MEDS: PIPERACILLIN/TAZOBACTAM 3,375 MG in SODIUM CHLORIDE 0.9% 100 ML IV SCH ×2 (03:58→18:43)
[2020-07-13 06:40] LABS: Calcium 7.2 MG/DL (8.5-10.1); Osmolality,Calculated 291.1 MOS/KG (273-304); Potassium 4.8 MMOL/L (3.5-5.1)
[2020-07-13 07:10] LABS: Basophils % 0.2 % (0.0-0.8); Eosinophils # 0.8 10*3/uL (0.0-0.87); Eosinophils % 6.3 % (0.00-10.9); Hematocrit 26.1 VOL% (42.0-52.0); Hemoglobin 7.3 GM/DL (14.0-18.0); Immature Granulocytes % 1.3 %; Immature Granulocytes Absolute 0.16 #; Lymphocytes # 1.1 10*3/uL (1.4-4.0); Lymphocytes % 9.2 % (21.2-54.2); Mean Corpuscular Volume 93.5 FL (87-102); Mean Platelet Volume 9.7 FL (9.6-12.0); Monocytes % 8.1 % (1.7-12.7); Neutrophils % 74.9 % (38.7-73.9); Platelet Count 283 T/CUMM (130-400); Red Blood Count 2.79 MC/CUMM (3.8-5.5); Red Cell Distribution Width 16.6 % (9.3-17.3); White Blood Count 12.1 T/CUMM (4-12)
[2020-07-13 07:43] LABS: Anisocytosis 1+; Hypochromasia 1+; Microcytosis 1+
[2020-07-13 07:44] LABS: Platelet Estimate Normal
[2020-07-13 07:45] LABS: Ovalocytes Slight
[2020-07-13] MEDS: MORPHINE 4 MG/1 ML VIAL IV PRN ×3 (08:50→22:27)
[2020-07-13] MEDS: HEPARIN 5,000 UNIT/1 ML VIAL SUBCUT SCH ×2 (08:52→21:29)
[2020-07-13] MEDS: INSULIN REGULAR 100 UNIT/ML SUBCUT SCH ×4 (08:52→21:25)
[2020-07-13] MEDS: metOLazone 5 MG TABLET PO SCH (08:53)
[2020-07-13] MEDS: MENTHOL/ZINC OXIDE OINT 71 GM JAR TOP SCH ×2 (08:53→21:29)
[2020-07-13] MEDS: INSULIN GLARGINE 100 UNIT/ML SUBCUT SCH (08:53)
[2020-07-13] MEDS: METOPROLOL SUCCINATE XL 25 MG TABLET PO SCH ×2 (08:53→21:29)
[2020-07-13] MEDS: GABAPENTIN 300 MG CAPSULE PO SCH ×3 (08:53→21:29)
[2020-07-13] MEDS: FAMOTIDINE 20 MG TABLET PO SCH (08:53)
[2020-07-13] MEDS: ASPIRIN CHEW 81 MG TABLET PO SCH (08:53)
[2020-07-13] MEDS: DICLOFENAC 1.3% PATCH 5/PACK TRANSDERM SCH ×2 (13:05→22:59)
[2020-07-13] MEDS ORDERED: VANCOMYCIN INJ 1,000 MG in SODIUM CHLORIDE 0.9% 250 ML IV ONE (17:00)
[2020-07-14] MEDS: ALBUTEROL/IPRATROPIUM 3 ML NEB RESP TX SCH ×4 (00:32→19:15)
[2020-07-14] MEDS: PIPERACILLIN/TAZOBACTAM 3,375 MG in SODIUM CHLORIDE 0.9% 100 ML IV SCH ×2 (04:14→16:20)
[2020-07-14] MEDS: MORPHINE 4 MG/1 ML VIAL IV PRN ×4 (04:15→16:31)
[2020-07-14 05:47] LABS: Calcium 7.4 MG/DL (8.5-10.1); Osmolality,Calculated 291.8 MOS/KG (273-304); Potassium 4.7 MMOL/L (3.5-5.1)
[2020-07-14 06:02] LABS: Basophils % 0.2 % (0.0-0.8); Eosinophils # 0.6 10*3/uL (0.0-0.87); Eosinophils % 5.3 % (0.00-10.9); Hematocrit 26.3 VOL% (42.0-52.0); Immature Granulocytes % 1.1 %; Immature Granulocytes Absolute 0.13 #; Lymphocytes # 1.2 10*3/uL (1.4-4.0); Lymphocytes % 9.6 % (21.2-54.2); Mean Corpuscular HGB Conc 27.4 GM/DL (32-36); Mean Corpuscular Volume 95.3 FL (87-102); Mean Platelet Volume 9.6 FL (9.6-12.0); Neutrophils % 73.8 % (38.7-73.9); Platelet Count 301 T/CUMM (130-400); Red Blood Count 2.76 MC/CUMM (3.8-5.5); Red Cell Distribution Width 16.9 % (9.3-17.3)
[2020-07-14 06:03] LABS: Hemoglobin 7.2 GM/DL (14.0-18.0)
[2020-07-14 06:18] LABS: Hypochromasia 2+; Microcytosis 1+; Platelet Estimate Adequate
[2020-07-14] MEDS: HEPARIN 5,000 UNIT/1 ML VIAL SUBCUT SCH ×2 (09:20→20:57)
[2020-07-14] MEDS: FAMOTIDINE 20 MG TABLET PO SCH (09:21)
[2020-07-14] MEDS: metOLazone 5 MG TABLET PO SCH (09:21)
[2020-07-14] MEDS: ASPIRIN CHEW 81 MG TABLET PO SCH (09:21)
[2020-07-14] MEDS: METOPROLOL SUCCINATE XL 25 MG TABLET PO SCH ×2 (09:21→20:57)
[2020-07-14] MEDS: GABAPENTIN 300 MG CAPSULE PO SCH ×3 (09:21→20:57)
[2020-07-14] MEDS: INSULIN REGULAR 100 UNIT/ML SUBCUT SCH ×4 (09:21→22:02)
[2020-07-14] MEDS: INSULIN GLARGINE 100 UNIT/ML SUBCUT SCH (09:22)
[2020-07-14] MEDS: MENTHOL/ZINC OXIDE OINT 71 GM JAR TOP SCH ×2 (09:22→20:57)
[2020-07-14] MEDS: DICLOFENAC 1.3% PATCH 5/PACK TRANSDERM SCH ×2 (13:15→22:02)
[2020-07-14 21:56] LABS: ABG Base Excess -0.2 MMOL/L (-2.5-2.5); ABG HCO3 24.3 MMOL/L (20-26); ABG Oxygen Saturation 97.8 % (95-100); ABG PCO2 62.7 MM HG (35-48); ABG PH 7.251 (7.35-7.45); ABG TCO2 26.5 MMOL/L (23-27); Allen Test Positive
[2020-07-14 22:23] LABS: Calcium 7.1 MG/DL (8.5-10.1); Potassium 4.7 MMOL/L (3.5-5.1)
[2020-07-15] MEDS: ALBUTEROL/IPRATROPIUM 3 ML NEB RESP TX SCH ×3 (00:20→18:52)
[2020-07-15] MEDS: PIPERACILLIN/TAZOBACTAM 3,375 MG in SODIUM CHLORIDE 0.9% 100 ML IV SCH ×2 (04:09→17:06)
[2020-07-15] MEDS: INSULIN GLARGINE 100 UNIT/ML SUBCUT SCH (08:32)
[2020-07-15] MEDS: ASPIRIN CHEW 81 MG TABLET PO SCH (08:32)
[2020-07-15] MEDS: FAMOTIDINE 20 MG TABLET PO SCH (08:32)
[2020-07-15] MEDS: GABAPENTIN 300 MG CAPSULE PO SCH ×3 (08:32→22:29)
[2020-07-15] MEDS: HEPARIN 5,000 UNIT/1 ML VIAL SUBCUT SCH ×2 (08:33→22:28)
[2020-07-15] MEDS: INSULIN REGULAR 100 UNIT/ML SUBCUT SCH ×4 (08:33→22:28)
[2020-07-15] MEDS: METOPROLOL SUCCINATE XL 25 MG TABLET PO SCH ×2 (08:33→22:29)
[2020-07-15] MEDS: MORPHINE 4 MG/1 ML VIAL IV PRN (08:39)
[2020-07-15] MEDS: DICLOFENAC 1.3% PATCH 5/PACK TRANSDERM SCH ×2 (11:10→22:28)
[2020-07-15] MEDS: MENTHOL/ZINC OXIDE OINT 71 GM JAR TOP SCH ×2 (11:10→22:29)
[2020-07-15] MEDS: metOLazone 5 MG TABLET PO SCH (11:11)
[2020-07-16] MEDS: ALBUTEROL/IPRATROPIUM 3 ML NEB RESP TX SCH ×5 (00:21→19:22)
[2020-07-16] MEDS: PIPERACILLIN/TAZOBACTAM 3,375 MG in SODIUM CHLORIDE 0.9% 100 ML IV SCH ×2 (03:58→16:55)
[2020-07-16] MEDS: MORPHINE 4 MG/1 ML VIAL IV PRN ×3 (03:59→16:55)
[2020-07-16 06:02] LABS: Basophils % 0.3 % (0.0-0.8); Eosinophils # 0.7 10*3/uL (0.0-0.87); Eosinophils % 7.9 % (0.00-10.9); Hematocrit 26.1 VOL% (42.0-52.0); Hemoglobin 7.1 GM/DL (14.0-18.0); Immature Granulocytes % 0.5 %; Immature Granulocytes Absolute 0.05 #; Lymphocytes # 0.8 10*3/uL (1.4-4.0); Lymphocytes % 8.6 % (21.2-54.2); Mean Corpuscular HGB Conc 27.2 GM/DL (32-36); Mean Corpuscular Volume 93.9 FL (87-102); Mean Platelet Volume 9.4 FL (9.6-12.0); Monocytes % 10.2 % (1.7-12.7); Neutrophils % 72.5 % (38.7-73.9); Platelet Count 322 T/CUMM (130-400); Red Blood Count 2.78 MC/CUMM (3.8-5.5); Red Cell Distribution Width 16.7 % (9.3-17.3); White Blood Count 9.3 T/CUMM (4-12)
[2020-07-16 06:04] LABS: Calcium 7.5 MG/DL (8.5-10.1); Osmolality,Calculated 283.1 MOS/KG (273-304); Potassium 4.4 MMOL/L (3.5-5.1)
[2020-07-16 06:06] LABS: Hypochromasia 2+; Microcytosis 1+; Platelet Estimate Adequate
[2020-07-16 06:07] LABS: Ovalocytes Slight
[2020-07-16] MEDS: INSULIN GLARGINE 100 UNIT/ML SUBCUT SCH (09:19)
[2020-07-16] MEDS: METOPROLOL SUCCINATE XL 25 MG TABLET PO SCH ×2 (09:20→22:22)
[2020-07-16] MEDS: FAMOTIDINE 20 MG TABLET PO SCH (09:20)
[2020-07-16] MEDS: GABAPENTIN 300 MG CAPSULE PO SCH ×3 (09:20→22:22)
[2020-07-16] MEDS: metOLazone 5 MG TABLET PO SCH (09:20)
[2020-07-16] MEDS: ASPIRIN CHEW 81 MG TABLET PO SCH (09:20)
[2020-07-16] MEDS: MENTHOL/ZINC OXIDE OINT 71 GM JAR TOP SCH ×2 (09:27→22:23)
[2020-07-16] MEDS: INSULIN REGULAR 100 UNIT/ML SUBCUT SCH ×4 (09:27→22:22)
[2020-07-16] MEDS: DICLOFENAC 1.3% PATCH 5/PACK TRANSDERM SCH ×2 (09:27→22:23)
[2020-07-16] MEDS: HEPARIN 5,000 UNIT/1 ML VIAL SUBCUT SCH (09:27)
[2020-07-16] MEDS ORDERED: IRON SUCROSE 100 MG/5 ML VIAL IV SCH (10:00)
[2020-07-17] MEDS: ALBUTEROL/IPRATROPIUM 3 ML NEB RESP TX SCH ×4 (01:18→19:19)
[2020-07-17] MEDS: PIPERACILLIN/TAZOBACTAM 3,375 MG in SODIUM CHLORIDE 0.9% 100 ML IV SCH ×2 (05:07→17:08)
[2020-07-17] MEDS ORDERED: TISSUE ADHESIVE 1 EACH APPLICATOR TOP ONE (06:18)
[2020-07-17] MEDS ORDERED: LIDOCAINE 1%/EPI INJ 20 ML VIAL ONE (06:18)
[2020-07-17] MEDS ORDERED: BUPIVACAINE MPF 0.25% 30 ML VIAL ONE (06:18)
[2020-07-17] MEDS ORDERED: HEPARIN 5,000 UNIT/1 ML VIAL ONE (06:18)
[2020-07-17] MEDS ORDERED: SODIUM CHLORIDE 0.9% 250 ML IV ONE (07:28)
[2020-07-17] MEDS ORDERED: LIDOCAINE 2% 5 ML VIAL ONE (07:28)
[2020-07-17] MEDS ORDERED: propofoL 200 MG/20 ML VIAL IV ONE (07:28)
[2020-07-17] MEDS ORDERED: fentaNYL 100 MCG/2 ML VIAL ONE (07:28)
[2020-07-17] MEDS ORDERED: MIDAZOLAM 2 MG/2 ML VIAL ONE (07:28)
[2020-07-17] MEDS ORDERED: SODIUM CHLORIDE 0.9% 250 ML IV SCH (07:30)
[2020-07-17] MEDS: INSULIN REGULAR 100 UNIT/ML SUBCUT SCH ×4 (08:47→20:51)
[2020-07-17 09:26] LABS: Calcium 7.7 MG/DL (8.5-10.1); Osmolality,Calculated 277.5 MOS/KG (273-304); Potassium 4.6 MMOL/L (3.5-5.1)
[2020-07-17 09:30] LABS: Basophils % 0.4 % (0.0-0.8); Eosinophils # 0.7 10*3/uL (0.0-0.87); Eosinophils % 7.9 % (0.00-10.9); Hematocrit 26.4 VOL% (42.0-52.0); Hemoglobin 7.1 GM/DL (14.0-18.0); Immature Granulocytes % 0.6 %; Immature Granulocytes Absolute 0.05 #; Lymphocytes # 0.6 10*3/uL (1.4-4.0); Lymphocytes % 6.6 % (21.2-54.2); Mean Corpuscular HGB Conc 26.9 GM/DL (32-36); Mean Corpuscular Volume 94.3 FL (87-102); Mean Platelet Volume 9.2 FL (9.6-12.0); Monocytes % 8.9 % (1.7-12.7); Neutrophils % 75.6 % (38.7-73.9); Platelet Count 332 T/CUMM (130-400); Red Cell Distribution Width 17.1 % (9.3-17.3); White Blood Count 8.5 T/CUMM (4-12)
[2020-07-17] MEDS: INSULIN GLARGINE 100 UNIT/ML SUBCUT SCH (09:49)
[2020-07-17] MEDS: FAMOTIDINE 20 MG TABLET PO SCH (09:50)
[2020-07-17] MEDS: metOLazone 5 MG TABLET PO SCH (09:50)
[2020-07-17] MEDS: GABAPENTIN 300 MG CAPSULE PO SCH ×3 (09:50→20:49)
[2020-07-17] MEDS: ASPIRIN CHEW 81 MG TABLET PO SCH (09:51)
[2020-07-17] MEDS: METOPROLOL SUCCINATE XL 25 MG TABLET PO SCH ×2 (09:51→20:50)
[2020-07-17] MEDS: MORPHINE 4 MG/1 ML VIAL IV PRN (09:56)
[2020-07-17] MEDS: MENTHOL/ZINC OXIDE OINT 71 GM JAR TOP SCH ×2 (09:57→20:50)
[2020-07-17] MEDS: DICLOFENAC 1.3% PATCH 5/PACK TRANSDERM SCH ×2 (14:28→20:50)
[2020-07-17] MEDS: predniSONE 20 MG TABLET PO SCH ×2 (17:10→20:50)
[2020-07-17 22:30] LABS: Basophils % 0.3 % (0.0-0.8); Eosinophils # 0.4 10*3/uL (0.0-0.87); Eosinophils % 4.3 % (0.00-10.9); Hematocrit 27.9 VOL% (42.0-52.0); Hemoglobin 7.8 GM/DL (14.0-18.0); Immature Granulocytes % 1.5 %; Immature Granulocytes Absolute 0.15 #; Lymphocytes # 0.9 10*3/uL (1.4-4.0); Mean Corpuscular Volume 93.6 FL (87-102); Mean Platelet Volume 9.4 FL (9.6-12.0); Monocytes % 7.1 % (1.7-12.7); Neutrophils % 77.8 % (38.7-73.9); Platelet Count 331 T/CUMM (130-400); Red Blood Count 2.98 MC/CUMM (3.8-5.5); Red Cell Distribution Width 16.8 % (9.3-17.3); White Blood Count 9.7 T/CUMM (4-12)
[2020-07-17 22:39] LABS: Albumin 1.4 G/DL (3.4-5.0); Bilirubin,Total 0.5 MG/DL (0.2-1.0); Calcium 7.6 MG/DL (8.5-10.1); Osmolality,Calculated 274.7 MOS/KG (273-304); Potassium 4.7 MMOL/L (3.5-5.1); Total Protein 9.3 G/DL (6.4-8.3)
[2020-07-17 23:03] LABS: ABG Base Excess -2.3 MMOL/L (-2.5-2.5); ABG HCO3 22.5 MMOL/L (20-26); ABG Oxygen Saturation 99.7 % (95-100); ABG PCO2 57.4 MM HG (35-48); ABG TCO2 24.2 MMOL/L (23-27)
[2020-07-18] MEDS: ALBUTEROL/IPRATROPIUM 3 ML NEB RESP TX SCH ×4 (01:10→19:46)
[2020-07-18 04:15] LABS: ABG Base Excess 0.1 MMOL/L (-2.5-2.5); ABG HCO3 24.5 MMOL/L (20-26); ABG PCO2 46.7 MM HG (35-48); ABG PH 7.349 (7.35-7.45); ABG TCO2 24.8 MMOL/L (23-27)
[2020-07-18 04:48] LABS: Basophils % 0.3 % (0.0-0.8); Eosinophils # 0.1 10*3/uL (0.0-0.87); Hematocrit 23.6 VOL% (42.0-52.0); Hemoglobin 6.6 GM/DL (14.0-18.0); Immature Granulocytes % 0.7 %; Immature Granulocytes Absolute 0.06 #; Lymphocytes # 0.6 10*3/uL (1.4-4.0); Lymphocytes % 6.5 % (21.2-54.2); Mean Corpuscular Volume 92.5 FL (87-102); Mean Platelet Volume 9.6 FL (9.6-12.0); Monocytes % 5.3 % (1.7-12.7); Neutrophils % 86.2 % (38.7-73.9); Platelet Count 331 T/CUMM (130-400); Red Blood Count 2.55 MC/CUMM (3.8-5.5); Red Cell Distribution Width 17.1 % (9.3-17.3); White Blood Count 8.7 T/CUMM (4-12)
[2020-07-18 05:13] LABS: Calcium 7.5 MG/DL (8.5-10.1); Osmolality,Calculated 273.7 MOS/KG (273-304); Potassium 4.7 MMOL/L (3.5-5.1)
[2020-07-18] MEDS: INSULIN REGULAR 100 UNIT/ML SUBCUT SCH ×3 (08:11→18:00)
[2020-07-18] MEDS ORDERED: SODIUM CHLORIDE 0.9% 1,000 ML IV PRN (09:47)
[2020-07-18 10:21] LABS: % Iron Saturation 22.6 % (18-50); Ferritin 142.6 ng/ml (26-388)
[2020-07-18] MEDS: metOLazone 5 MG TABLET PO SCH (10:36)
[2020-07-18] MEDS: ASPIRIN CHEW 81 MG TABLET PO SCH (10:36)
[2020-07-18] MEDS: FAMOTIDINE 20 MG TABLET PO SCH (10:36)
[2020-07-18] MEDS: predniSONE 20 MG TABLET PO SCH (10:37)
[2020-07-18] MEDS: GABAPENTIN 300 MG CAPSULE PO SCH ×3 (10:37→20:27)
[2020-07-18] MEDS: DICLOFENAC 1.3% PATCH 5/PACK TRANSDERM SCH ×2 (10:38→20:26)
[2020-07-18] MEDS: INSULIN GLARGINE 100 UNIT/ML SUBCUT SCH (10:38)
[2020-07-18] MEDS: MENTHOL/ZINC OXIDE OINT 71 GM JAR TOP SCH ×2 (10:40→20:38)
[2020-07-18] MEDS: METOPROLOL TARTRATE 25 MG TABLET PO SCH ×2 (10:51→20:27)
[2020-07-18] MEDS: METOPROLOL SUCCINATE XL 25 MG TABLET PO SCH (11:24)
[2020-07-18] MEDS: methylPREDNISolone SOD SUC 40 MG/1 ML VIAL IV SCH (18:30)
[2020-07-18] MEDS: PIPERACILLIN/TAZOBACTAM 3,375 MG in SODIUM CHLORIDE 0.9% 100 ML IV SCH (18:33)
[2020-07-18 19:27] LABS: Hematocrit 29.4 VOL% (42.0-52.0)
[2020-07-18 19:35] LABS: Hemoglobin 8.7 GM/DL (14.0-18.0)
[2020-07-19] MEDS: ALBUTEROL/IPRATROPIUM 3 ML NEB RESP TX SCH ×4 (00:05→19:06)
[2020-07-19] MEDS: INSULIN REGULAR 100 UNIT/ML SUBCUT SCH ×4 (00:22→18:43)
[2020-07-19] MEDS: methylPREDNISolone SOD SUC 40 MG/1 ML VIAL IV SCH ×3 (03:08→21:12)
[2020-07-19 04:19] LABS: Basophils % 0.1 % (0.0-0.8); Hematocrit 27.5 VOL% (42.0-52.0); Hemoglobin 8.3 GM/DL (14.0-18.0); Immature Granulocytes % 0.7 %; Immature Granulocytes Absolute 0.05 #; Lymphocytes # 0.4 10*3/uL (1.4-4.0); Lymphocytes % 5.1 % (21.2-54.2); Mean Corpuscular HGB Conc 30.2 GM/DL (32-36); Mean Corpuscular Volume 89.6 FL (87-102); Mean Platelet Volume 9.6 FL (9.6-12.0); Monocytes % 3.4 % (1.7-12.7); Neutrophils % 90.7 % (38.7-73.9); Platelet Count 317 T/CUMM (130-400); Red Blood Count 3.07 MC/CUMM (3.8-5.5); Red Cell Distribution Width 16.3 % (9.3-17.3); White Blood Count 7.6 T/CUMM (4-12)
[2020-07-19 04:44] LABS: Allen Test Positive; Pt O2 Delivery Device Ventilator
[2020-07-19 04:46] LABS: ABG Base Excess -2.6 MMOL/L (-2.5-2.5); ABG HCO3 22.2 MMOL/L (20-26); ABG Oxygen Saturation 98.4 % (95-100); ABG PCO2 42.2 MM HG (35-48); ABG PH 7.343 (7.35-7.45); ABG TCO2 21.5 MMOL/L (23-27)
[2020-07-19 05:03] LABS: Albumin 1.4 G/DL (3.4-5.0); Bilirubin,Total 0.8 MG/DL (0.2-1.0); Calcium 7.6 MG/DL (8.5-10.1); Osmolality,Calculated 283.4 MOS/KG (273-304); Total Protein 8.3 G/DL (6.4-8.3)
[2020-07-19 05:33] LABS: Lymphocytes 1 % (20-55); Segmented Neutrophils 96 % (50-85); Total Cells Counted 100
[2020-07-19 05:34] LABS: Platelet Estimate Increased
[2020-07-19] MEDS: PIPERACILLIN/TAZOBACTAM 3,375 MG in SODIUM CHLORIDE 0.9% 100 ML IV SCH ×2 (05:37→18:43)
[2020-07-19 05:39] LABS: Polychromasia Few
[2020-07-19 05:40] LABS: Hypochromasia 1+; Microcytosis Slight
[2020-07-19 05:41] LABS: Ovalocytes Slight
[2020-07-19 08:51] LABS: Amorphous Crystals,Urine Occasional /HPF (Few); Bilirubin,Urine Negative (Negative); Blood, Urine Small mg/dL (Negative); Glucose,Urine (UA) 50 mg/dL (Negative); Hyaline Casts,Urine 1 /LPF (0-3); Ketones,Urine Negative (Negative); Mucus,Urine Occasional /LPF (Occasional); Nitrite,Urine Negative (Negative); Protein,Urine 100 MG/DL; RBC,Urine 12 /HPF (0-4); Urine Appearance CLEAR (Clear); Urine Color Yellow (Yellow); Urine Specific Gravity 1.011 (1.001-1.035); Urine Urobilinogen < 2.0 EU/DL (0.2-1.0); WBC,Urine 2 /HPF (0-6)
[2020-07-19] MEDS: MENTHOL/ZINC OXIDE OINT 71 GM JAR TOP SCH ×2 (09:44→20:49)
[2020-07-19] MEDS: GABAPENTIN 300 MG CAPSULE PO SCH ×3 (09:44→20:45)
[2020-07-19] MEDS: METOPROLOL TARTRATE 25 MG TABLET PO SCH ×2 (09:44→20:44)
[2020-07-19] MEDS: metOLazone 5 MG TABLET PO SCH (09:44)
[2020-07-19] MEDS: ASPIRIN CHEW 81 MG TABLET PO SCH (09:45)
[2020-07-19] MEDS: DICLOFENAC 1.3% PATCH 5/PACK TRANSDERM SCH ×2 (09:45→20:50)
[2020-07-19] MEDS: FAMOTIDINE 20 MG TABLET PO SCH (09:45)
[2020-07-19] MEDS: INSULIN GLARGINE 100 UNIT/ML SUBCUT SCH (09:51)
[2020-07-19 10:24] LABS: ABG Base Excess -2.8 MMOL/L (-2.5-2.5); ABG Oxygen Saturation 98.5 % (95-100); ABG PCO2 43.2 MM HG (35-48); ABG PH 7.333 (7.35-7.45); ABG TCO2 21.4 MMOL/L (23-27)
[2020-07-19 10:25] LABS: Allen Test Positive; Pt O2 Delivery Device Ventilator
[2020-07-19 12:57] LABS: ABG HCO3 23.5 MMOL/L (20-26); ABG Oxygen Saturation 98.1 % (95-100); ABG PH 7.355 (7.35-7.45); ABG PO2 121.9 MM HG (80-95); ABG TCO2 24.8 MMOL/L (23-27); Allen Test Positive; Pt O2 Delivery Device Ventilator
[2020-07-20] MEDS: ALBUTEROL/IPRATROPIUM 3 ML NEB RESP TX SCH ×4 (00:05→18:02)
[2020-07-20] MEDS: INSULIN REGULAR 100 UNIT/ML SUBCUT SCH ×4 (00:36→18:25)
[2020-07-20 04:39] LABS: Basophils % 0.2 % (0.0-0.8); Hematocrit 27.6 VOL% (42.0-52.0); Hemoglobin 8.3 GM/DL (14.0-18.0); Immature Granulocytes Absolute 0.08 #; Lymphocytes # 0.4 10*3/uL (1.4-4.0); Lymphocytes % 4.8 % (21.2-54.2); Mean Corpuscular HGB Conc 30.1 GM/DL (32-36); Mean Corpuscular Volume 91.4 FL (87-102); Mean Platelet Volume 9.3 FL (9.6-12.0); Monocytes % 3.3 % (1.7-12.7); Neutrophils % 90.7 % (38.7-73.9); Platelet Count 303 T/CUMM (130-400); Red Blood Count 3.02 MC/CUMM (3.8-5.5); Red Cell Distribution Width 16.4 % (9.3-17.3); White Blood Count 8.2 T/CUMM (4-12)
[2020-07-20 04:39] LABS: ABG HCO3 23.1 MMOL/L (20-26); ABG Oxygen Saturation 98.5 % (95-100); ABG PO2 148.2 MM HG (80-95); ABG TCO2 24.6 MMOL/L (23-27)
[2020-07-20 05:01] LABS: Hypochromasia 1+; Lymphocytes 3 % (20-55); Microcytosis 1+; Platelet Estimate Adequate; Segmented Neutrophils 95 % (50-85); Total Cells Counted 100
[2020-07-20 05:19] LABS: Calcium 7.4 MG/DL (8.5-10.1); Osmolality,Calculated 282.7 MOS/KG (273-304)
[2020-07-20] MEDS: PIPERACILLIN/TAZOBACTAM 3,375 MG in SODIUM CHLORIDE 0.9% 100 ML IV SCH ×2 (06:26→18:15)
[2020-07-20] MEDS: METOPROLOL TARTRATE 25 MG TABLET PO SCH ×2 (09:05→20:58)
[2020-07-20] MEDS: methylPREDNISolone SOD SUC 40 MG/1 ML VIAL IV SCH ×2 (09:05→21:47)
[2020-07-20] MEDS: INSULIN GLARGINE 100 UNIT/ML SUBCUT SCH (09:05)
[2020-07-20] MEDS: ASPIRIN CHEW 81 MG TABLET PO SCH (09:05)
[2020-07-20] MEDS: FAMOTIDINE 20 MG TABLET PO SCH (09:05)
[2020-07-20] MEDS: GABAPENTIN 300 MG CAPSULE PO SCH ×3 (09:05→20:58)
[2020-07-20] MEDS: metOLazone 5 MG TABLET PO SCH (09:05)
[2020-07-20] MEDS: MENTHOL/ZINC OXIDE OINT 71 GM JAR TOP SCH ×2 (09:05→20:59)
[2020-07-20] MEDS: DICLOFENAC 1.3% PATCH 5/PACK TRANSDERM SCH ×2 (13:23→22:36)
[2020-07-20] MEDS: ACETAMINOPHEN 325 MG TABLET PO PRN (21:46)
[2020-07-21] MEDS: MELATONIN 3 MG TABLET PO PRN (00:12)
[2020-07-21] MEDS: INSULIN REGULAR 100 UNIT/ML SUBCUT SCH ×5 (00:56→21:08)
[2020-07-21] MEDS: ALBUTEROL/IPRATROPIUM 3 ML NEB RESP TX SCH ×4 (01:42→18:18)
[2020-07-21 03:26] LABS: ABG HCO3 23.5 MMOL/L (20-26); ABG Oxygen Saturation 96.9 % (95-100); ABG PCO2 54.3 MM HG (35-48); ABG PH 7.289 (7.35-7.45); ABG PO2 98.7 MM HG (80-95); ABG TCO2 24.5 MMOL/L (23-27); Allen Test Positive
[2020-07-21 04:56] LABS: Basophils % 0.4 % (0.0-0.8); Eosinophils # 0.1 10*3/uL (0.0-0.87); Eosinophils % 0.7 % (0.00-10.9); Hematocrit 30.7 VOL% (42.0-52.0); Immature Granulocytes Absolute 0.09 #; Lymphocytes # 0.4 10*3/uL (1.4-4.0); Lymphocytes % 4.5 % (21.2-54.2); Mean Corpuscular HGB Conc 29.3 GM/DL (32-36); Mean Corpuscular Volume 92.2 FL (87-102); Mean Platelet Volume 9.5 FL (9.6-12.0); Monocytes % 4.8 % (1.7-12.7); Neutrophils % 88.6 % (38.7-73.9); Platelet Count 296 T/CUMM (130-400); Red Blood Count 3.33 MC/CUMM (3.8-5.5); Red Cell Distribution Width 16.7 % (9.3-17.3); White Blood Count 9.4 T/CUMM (4-12)
[2020-07-21 05:17] LABS: Calcium 7.1 MG/DL (8.5-10.1); Osmolality,Calculated 279.4 MOS/KG (273-304); Potassium 4.7 MMOL/L (3.5-5.1)
[2020-07-21 05:17] LABS: Eosinophils 1 % (0-10); Hypochromasia 1+; Lymphocytes 2 % (20-55); Microcytosis 1+; Ovalocytes Slight; Platelet Estimate Adequate; Segmented Neutrophils 94 % (50-85); Total Cells Counted 100
[2020-07-21] MEDS: PIPERACILLIN/TAZOBACTAM 3,375 MG in SODIUM CHLORIDE 0.9% 100 ML IV SCH ×2 (06:02→17:55)
[2020-07-21] MEDS: GABAPENTIN 300 MG CAPSULE PO SCH ×3 (08:16→20:07)
[2020-07-21] MEDS: FAMOTIDINE 20 MG TABLET PO SCH (08:16)
[2020-07-21] MEDS: DICLOFENAC 1.3% PATCH 5/PACK TRANSDERM SCH ×2 (08:16→20:08)
[2020-07-21] MEDS: METOPROLOL TARTRATE 25 MG TABLET PO SCH ×2 (08:17→20:07)
[2020-07-21] MEDS: MENTHOL/ZINC OXIDE OINT 71 GM JAR TOP SCH ×2 (08:17→20:08)
[2020-07-21] MEDS: ASPIRIN CHEW 81 MG TABLET PO SCH (08:17)
[2020-07-21] MEDS: metOLazone 5 MG TABLET PO SCH (08:18)
[2020-07-21] MEDS: INSULIN GLARGINE 100 UNIT/ML SUBCUT SCH (08:19)
[2020-07-21] MEDS: methylPREDNISolone SOD SUC 40 MG/1 ML VIAL IV SCH ×2 (09:36→21:08)
[2020-07-21] MEDS ORDERED: GLUCAGON 1 MG VIAL IM PRN (10:07)
[2020-07-21] MEDS ORDERED: DEXTROSE 50% 25 GM/50 ML VIAL IV PRN (10:07)
[2020-07-22] MEDS: ALBUTEROL/IPRATROPIUM 3 ML NEB RESP TX SCH ×4 (00:20→19:40)
[2020-07-22 05:00] LABS: Calcium 7.1 MG/DL (8.5-10.1); Osmolality,Calculated 281.5 MOS/KG (273-304)
[2020-07-22 05:02] LABS: Basophils % 0.4 % (0.0-0.8); Eosinophils % 0.2 % (0.00-10.9); Hematocrit 31.1 VOL% (42.0-52.0); Immature Granulocytes % 1.5 %; Immature Granulocytes Absolute 0.12 #; Lymphocytes # 0.4 10*3/uL (1.4-4.0); Lymphocytes % 5.1 % (21.2-54.2); Mean Corpuscular HGB Conc 28.3 GM/DL (32-36); Mean Corpuscular Volume 94.5 FL (87-102); Mean Platelet Volume 9.4 FL (9.6-12.0); Monocytes % 4.4 % (1.7-12.7); Neutrophils % 88.4 % (38.7-73.9); Platelet Count 300 T/CUMM (130-400); Red Blood Count 3.29 MC/CUMM (3.8-5.5); White Blood Count 8.2 T/CUMM (4-12)
[2020-07-22 05:04] LABS: Hemoglobin 8.8 GM/DL (14.0-18.0)
[2020-07-22] MEDS: PIPERACILLIN/TAZOBACTAM 3,375 MG in SODIUM CHLORIDE 0.9% 100 ML IV SCH ×2 (05:53→19:10)
[2020-07-22] MEDS: ASPIRIN CHEW 81 MG TABLET PO SCH (08:17)
[2020-07-22] MEDS: INSULIN REGULAR 100 UNIT/ML SUBCUT SCH ×4 (08:17→20:56)
[2020-07-22] MEDS: MENTHOL/ZINC OXIDE OINT 71 GM JAR TOP SCH ×2 (08:17→20:55)
[2020-07-22] MEDS: INSULIN GLARGINE 100 UNIT/ML SUBCUT SCH (08:17)
[2020-07-22] MEDS: metOLazone 5 MG TABLET PO SCH (08:18)
[2020-07-22] MEDS: METOPROLOL TARTRATE 25 MG TABLET PO SCH ×2 (08:18→20:57)
[2020-07-22] MEDS: GABAPENTIN 300 MG CAPSULE PO SCH ×3 (08:18→20:57)
[2020-07-22] MEDS: FAMOTIDINE 20 MG TABLET PO SCH (08:18)
[2020-07-22] MEDS: methylPREDNISolone SOD SUC 40 MG/1 ML VIAL IV SCH ×2 (09:03→23:10)
[2020-07-22] MEDS: DICLOFENAC 1.3% PATCH 5/PACK TRANSDERM SCH ×2 (10:25→23:08)
[2020-07-22] MEDS ORDERED: hydrALAZINE 20 MG/1 ML VIAL IV PRN (15:43)
[2020-07-23] MEDS: ALBUTEROL/IPRATROPIUM 3 ML NEB RESP TX SCH ×4 (00:35→19:38)
[2020-07-23] MEDS: ACETAMINOPHEN 325 MG TABLET PO PRN ×3 (01:04→21:51)
[2020-07-23] MEDS: PIPERACILLIN/TAZOBACTAM 3,375 MG in SODIUM CHLORIDE 0.9% 100 ML IV SCH ×2 (05:37→17:22)
[2020-07-23] MEDS: GABAPENTIN 300 MG CAPSULE PO SCH ×3 (09:08→21:40)
[2020-07-23] MEDS: FAMOTIDINE 20 MG TABLET PO SCH (09:08)
[2020-07-23] MEDS: ASPIRIN CHEW 81 MG TABLET PO SCH (09:09)
[2020-07-23] MEDS: metOLazone 5 MG TABLET PO SCH (09:09)
[2020-07-23] MEDS: METOPROLOL TARTRATE 25 MG TABLET PO SCH ×2 (09:10→21:40)
[2020-07-23] MEDS: INSULIN GLARGINE 100 UNIT/ML SUBCUT SCH (09:10)
[2020-07-23] MEDS: INSULIN REGULAR 100 UNIT/ML SUBCUT SCH ×4 (09:10→21:42)
[2020-07-23] MEDS: MENTHOL/ZINC OXIDE OINT 71 GM JAR TOP SCH ×2 (09:11→21:40)
[2020-07-23] MEDS: methylPREDNISolone SOD SUC 40 MG/1 ML VIAL IV SCH ×2 (10:09→21:53)
[2020-07-23] MEDS: DICLOFENAC 1.3% PATCH 5/PACK TRANSDERM SCH ×2 (10:09→21:44)
[2020-07-23] MEDS: CLINDAMYCIN 300 MG CAPSULE PO SCH ×2 (14:17→21:59)
[2020-07-24] MEDS: ALBUTEROL/IPRATROPIUM 3 ML NEB RESP TX SCH ×4 (00:45→18:33)
[2020-07-24] MEDS: CLINDAMYCIN 300 MG CAPSULE PO SCH ×3 (06:01→21:43)
[2020-07-24] MEDS: PIPERACILLIN/TAZOBACTAM 3,375 MG in SODIUM CHLORIDE 0.9% 100 ML IV SCH ×2 (06:02→18:32)
[2020-07-24] MEDS: ACETAMINOPHEN 325 MG TABLET PO PRN (06:02)
[2020-07-24 07:24] LABS: Calcium 7.3 MG/DL (8.5-10.1); Osmolality,Calculated 289.4 MOS/KG (273-304); Potassium 4.8 MMOL/L (3.5-5.1)
[2020-07-24 07:27] LABS: Basophils % 0.2 % (0.0-0.8); Eosinophils % 0.4 % (0.00-10.9); Hematocrit 29.3 VOL% (42.0-52.0); Hemoglobin 8.4 GM/DL (14.0-18.0); Immature Granulocytes Absolute 0.08 #; Lymphocytes # 0.4 10*3/uL (1.4-4.0); Lymphocytes % 4.7 % (21.2-54.2); Mean Corpuscular HGB Conc 28.7 GM/DL (32-36); Mean Corpuscular Volume 94.2 FL (87-102); Mean Platelet Volume 9.1 FL (9.6-12.0); Monocytes % 3.5 % (1.7-12.7); Neutrophils % 90.2 % (38.7-73.9); Platelet Count 284 T/CUMM (130-400); Red Blood Count 3.11 MC/CUMM (3.8-5.5); Red Cell Distribution Width 17.3 % (9.3-17.3); White Blood Count 8.3 T/CUMM (4-12)
[2020-07-24 07:35] LABS: Lymphocytes 6 % (20-55); Segmented Neutrophils 91 % (50-85); Total Cells Counted 100
[2020-07-24 07:36] LABS: Platelet Estimate Normal; Polychromasia Slight
[2020-07-24 07:37] LABS: Hypochromasia 3+; Ovalocytes Few
[2020-07-24 07:38] LABS: Elliptocytes Few
[2020-07-24 07:39] LABS: Target Cells Slight; Tear Drop Cells Slight
[2020-07-24] MEDS: INSULIN GLARGINE 100 UNIT/ML SUBCUT SCH (10:36)
[2020-07-24] MEDS: INSULIN REGULAR 100 UNIT/ML SUBCUT SCH ×4 (10:36→21:45)
[2020-07-24] MEDS: methylPREDNISolone SOD SUC 40 MG/1 ML VIAL IV SCH ×2 (10:36→21:48)
[2020-07-24] MEDS: GABAPENTIN 300 MG CAPSULE PO SCH ×3 (10:37→21:43)
[2020-07-24] MEDS: DICLOFENAC 1.3% PATCH 5/PACK TRANSDERM SCH ×2 (10:37→21:52)
[2020-07-24] MEDS: FAMOTIDINE 20 MG TABLET PO SCH (10:38)
[2020-07-24] MEDS: ASPIRIN CHEW 81 MG TABLET PO SCH (10:38)
[2020-07-24] MEDS: metOLazone 5 MG TABLET PO SCH (10:38)
[2020-07-24] MEDS: METOPROLOL TARTRATE 25 MG TABLET PO SCH ×2 (10:38→21:44)
[2020-07-24] MEDS: MENTHOL/ZINC OXIDE OINT 71 GM JAR TOP SCH ×2 (10:39→21:48)
[2020-07-24] MEDS ORDERED: INSULIN GLARGINE 100 UNIT/ML SUBCUT SCH (15:18)
[2020-07-24 16:14] LABS: % Iron Saturation 23.2 % (18-50)
[2020-07-24 19:12] LABS: Folate 6.6 NG/ML (5.38-24.0)
[2020-07-25] MEDS: ALBUTEROL/IPRATROPIUM 3 ML NEB RESP TX SCH ×4 (00:30→19:28)
[2020-07-25 06:15] LABS: Calcium 7.5 MG/DL (8.5-10.1); Osmolality,Calculated 287.8 MOS/KG (273-304)
[2020-07-25 06:22] LABS: Basophils % 0.3 % (0.0-0.8); Eosinophils # 0.1 10*3/uL (0.0-0.87); Eosinophils % 0.6 % (0.00-10.9); Hematocrit 28.8 VOL% (42.0-52.0); Immature Granulocytes Absolute 0.09 #; Lymphocytes # 0.3 10*3/uL (1.4-4.0); Lymphocytes % 3.7 % (21.2-54.2); Mean Corpuscular HGB Conc 28.8 GM/DL (32-36); Mean Corpuscular Volume 94.4 FL (87-102); Mean Platelet Volume 8.8 FL (9.6-12.0); Monocytes % 3.2 % (1.7-12.7); Neutrophils % 91.2 % (38.7-73.9); Platelet Count 291 T/CUMM (130-400); Red Blood Count 3.05 MC/CUMM (3.8-5.5); Red Cell Distribution Width 17.4 % (9.3-17.3); White Blood Count 9.2 T/CUMM (4-12)
[2020-07-25 06:26] LABS: Hemoglobin 8.3 GM/DL (14.0-18.0)
[2020-07-25 06:30] LABS: Hypochromasia 1+; Lymphocytes 2 % (20-55); Microcytosis 1+; Platelet Estimate Adequate; Segmented Neutrophils 95 % (50-85); Total Cells Counted 100
[2020-07-25] MEDS: PIPERACILLIN/TAZOBACTAM 3,375 MG in SODIUM CHLORIDE 0.9% 100 ML IV SCH ×2 (06:39→18:03)
[2020-07-25] MEDS: CLINDAMYCIN 300 MG CAPSULE PO SCH ×3 (06:39→21:33)
[2020-07-25] MEDS: ASPIRIN CHEW 81 MG TABLET PO SCH (09:12)
[2020-07-25] MEDS: metOLazone 5 MG TABLET PO SCH (09:12)
[2020-07-25] MEDS: MENTHOL/ZINC OXIDE OINT 71 GM JAR TOP SCH ×2 (09:13→21:34)
[2020-07-25] MEDS: METOPROLOL TARTRATE 25 MG TABLET PO SCH ×2 (09:13→21:33)
[2020-07-25] MEDS: FAMOTIDINE 20 MG TABLET PO SCH (09:13)
[2020-07-25] MEDS: GABAPENTIN 300 MG CAPSULE PO SCH ×3 (09:13→21:32)
[2020-07-25] MEDS: INSULIN REGULAR 100 UNIT/ML SUBCUT SCH ×4 (09:14→21:33)
[2020-07-25] MEDS: methylPREDNISolone SOD SUC 40 MG/1 ML VIAL IV SCH ×2 (09:17→22:05)
[2020-07-25] MEDS ORDERED: DOCUSATE SODIUM 100 MG CAPSULE PO PRN (14:28)
[2020-07-25] MEDS: DICLOFENAC 1.3% PATCH 5/PACK TRANSDERM SCH ×2 (14:45→21:39)
[2020-07-25] MEDS: FERROUS SULFATE 325 MG TABLET PO SCH (16:45)
[2020-07-25] MEDS: ACETAMINOPHEN 325 MG TABLET PO PRN ×2 (16:45→21:40)
[2020-07-25] MEDS: MELATONIN 3 MG TABLET PO PRN (23:25)
[2020-07-26] MEDS: ALBUTEROL/IPRATROPIUM 3 ML NEB RESP TX SCH ×4 (02:13→19:48)
[2020-07-26] MEDS ORDERED: CALCIUM CARBONATE CHEW 500 MG TABLET PO ONE (02:47)
[2020-07-26] MEDS ORDERED: PANTOPRAZOLE 40 MG VIAL IV ONE (02:48)
[2020-07-26] MEDS: CLINDAMYCIN 300 MG CAPSULE PO SCH ×3 (05:39→21:50)
[2020-07-26 06:45] LABS: Basophils % 0.2 % (0.0-0.8); Eosinophils % 0.2 % (0.00-10.9); Hematocrit 30.8 VOL% (42.0-52.0); Hemoglobin 8.8 GM/DL (14.0-18.0); Immature Granulocytes % 4.2 %; Immature Granulocytes Absolute 0.41 #; Lymphocytes # 0.5 10*3/uL (1.4-4.0); Lymphocytes % 4.6 % (21.2-54.2); Mean Corpuscular HGB Conc 28.6 GM/DL (32-36); Mean Corpuscular Volume 94.2 FL (87-102); Mean Platelet Volume 9.2 FL (9.6-12.0); Monocytes % 4.6 % (1.7-12.7); Neutrophils % 86.2 % (38.7-73.9); Platelet Count 307 T/CUMM (130-400); Red Blood Count 3.27 MC/CUMM (3.8-5.5); Red Cell Distribution Width 17.5 % (9.3-17.3); White Blood Count 9.8 T/CUMM (4-12)
[2020-07-26 06:48] LABS: Band Neutrophils 1 % (0-10); Hypochromasia 1+; Lymphocytes 3 % (20-55); Microcytosis 1+; Platelet Estimate Adequate; Segmented Neutrophils 92 % (50-85); Total Cells Counted 100
[2020-07-26 07:10] LABS: Blood Urea Nitrogen 55 MG/DL (7-18); Carbon Dioxide 23 MMOL/L (21-32); Estimated Glom Filtration Rate 24 ML/MIN; Glucose 219 MG/DL (74-106); Osmolality,Calculated 278.1 MOS/KG (273-304); Potassium 5.9 MMOL/L (3.5-5.1); Sodium 128 MMOL/L (136-145)
[2020-07-26] MEDS: INSULIN GLARGINE 100 UNIT/ML SUBCUT SCH (10:47)
[2020-07-26] MEDS: INSULIN REGULAR 100 UNIT/ML SUBCUT SCH ×4 (10:47→21:58)
[2020-07-26] MEDS: DICLOFENAC 1.3% PATCH 5/PACK TRANSDERM SCH ×2 (10:48→21:49)
[2020-07-26] MEDS: GABAPENTIN 300 MG CAPSULE PO SCH ×3 (10:48→21:49)
[2020-07-26] MEDS: FERROUS SULFATE 325 MG TABLET PO SCH ×2 (10:48→16:25)
[2020-07-26] MEDS: ASPIRIN CHEW 81 MG TABLET PO SCH (10:49)
[2020-07-26] MEDS: metOLazone 5 MG TABLET PO SCH (10:49)
[2020-07-26] MEDS: MENTHOL/ZINC OXIDE OINT 71 GM JAR TOP SCH ×2 (10:49→21:49)
[2020-07-26] MEDS: FAMOTIDINE 20 MG TABLET PO SCH (10:49)
[2020-07-26] MEDS: METOPROLOL TARTRATE 25 MG TABLET PO SCH ×2 (10:49→21:49)
[2020-07-26] MEDS: methylPREDNISolone SOD SUC 40 MG/1 ML VIAL IV SCH ×2 (10:52→21:50)
[2020-07-26] MEDS: CALCIUM CARBONATE CHEW 500 MG TABLET PO SCH (21:49)
[2020-07-27] MEDS: ALBUTEROL/IPRATROPIUM 3 ML NEB RESP TX SCH ×4 (00:51→19:08)
[2020-07-27 05:52] LABS: Basophils % 0.4 % (0.0-0.8); Eosinophils % 0.1 % (0.00-10.9); Hematocrit 29.9 VOL% (42.0-52.0); Hemoglobin 8.8 GM/DL (14.0-18.0); Immature Granulocytes % 3.2 %; Immature Granulocytes Absolute 0.29 #; Lymphocytes # 0.4 10*3/uL (1.4-4.0); Lymphocytes % 4.7 % (21.2-54.2); Mean Corpuscular HGB Conc 29.4 GM/DL (32-36); Mean Corpuscular Volume 93.1 FL (87-102); Mean Platelet Volume 9.1 FL (9.6-12.0); Monocytes % 4.6 % (1.7-12.7); Platelet Count 317 T/CUMM (130-400); Red Blood Count 3.21 MC/CUMM (3.8-5.5); Red Cell Distribution Width 17.2 % (9.3-17.3); White Blood Count 9.2 T/CUMM (4-12)
[2020-07-27 06:14] LABS: Calcium 7.6 MG/DL (8.5-10.1); Osmolality,Calculated 279.2 MOS/KG (273-304); Potassium 4.6 MMOL/L (3.5-5.1)
[2020-07-27 06:15] LABS: Hypochromasia 1+; Lymphocytes 3 % (20-55); Microcytosis 1+; Platelet Estimate Adequate; Segmented Neutrophils 92 % (50-85); Total Cells Counted 100
[2020-07-27] MEDS: CLINDAMYCIN 300 MG CAPSULE PO SCH ×3 (07:29→21:29)
[2020-07-27 08:12] LABS: Calcium < 5.0 MG/DL (8.5-10.1)
[2020-07-27] MEDS: METOPROLOL TARTRATE 25 MG TABLET PO SCH ×2 (09:19→21:29)
[2020-07-27] MEDS: CALCIUM CARBONATE CHEW 500 MG TABLET PO SCH ×2 (09:19→21:29)
[2020-07-27] MEDS: ASPIRIN CHEW 81 MG TABLET PO SCH (09:19)
[2020-07-27] MEDS: INSULIN GLARGINE 100 UNIT/ML SUBCUT SCH (09:20)
[2020-07-27] MEDS: FAMOTIDINE 20 MG TABLET PO SCH (09:20)
[2020-07-27] MEDS: metOLazone 5 MG TABLET PO SCH (09:20)
[2020-07-27] MEDS: FERROUS SULFATE 325 MG TABLET PO SCH ×2 (09:20→16:58)
[2020-07-27] MEDS: GABAPENTIN 300 MG CAPSULE PO SCH ×3 (09:20→21:29)
[2020-07-27] MEDS: methylPREDNISolone SOD SUC 40 MG/1 ML VIAL IV SCH ×2 (09:20→21:28)
[2020-07-27] MEDS: DICLOFENAC 1.3% PATCH 5/PACK TRANSDERM SCH ×2 (09:24→21:28)
[2020-07-27] MEDS: INSULIN REGULAR 100 UNIT/ML SUBCUT SCH ×4 (09:24→21:30)
[2020-07-27] MEDS: MENTHOL/ZINC OXIDE OINT 71 GM JAR TOP SCH ×2 (09:24→21:27)
[2020-07-27] MEDS: HEPARIN 5,000 UNIT/1 ML VIAL SUBCUT SCH (21:27)
[2020-07-28] MEDS: ALBUTEROL/IPRATROPIUM 3 ML NEB RESP TX SCH ×5 (00:17→19:17)
[2020-07-28] MEDS: CLINDAMYCIN 300 MG CAPSULE PO SCH ×3 (05:55→21:11)
[2020-07-28] MEDS: INSULIN REGULAR 100 UNIT/ML SUBCUT SCH ×4 (12:02→21:10)
[2020-07-28] MEDS: FERROUS SULFATE 325 MG TABLET PO SCH ×2 (12:03→16:45)
[2020-07-28] MEDS: INSULIN GLARGINE 100 UNIT/ML SUBCUT SCH (12:04)
[2020-07-28] MEDS: GABAPENTIN 300 MG CAPSULE PO SCH ×3 (12:04→21:10)
[2020-07-28] MEDS: ACETAMINOPHEN 325 MG TABLET PO PRN ×2 (13:41→23:27)
[2020-07-28] MEDS: MENTHOL/ZINC OXIDE OINT 71 GM JAR TOP SCH ×2 (13:45→21:09)
[2020-07-28] MEDS: HEPARIN 5,000 UNIT/1 ML VIAL SUBCUT SCH ×2 (13:45→21:09)
[2020-07-28] MEDS: ASPIRIN CHEW 81 MG TABLET PO SCH (13:45)
[2020-07-28] MEDS: DICLOFENAC 1.3% PATCH 5/PACK TRANSDERM SCH ×2 (13:45→21:09)
[2020-07-28] MEDS: metOLazone 5 MG TABLET PO SCH (13:46)
[2020-07-28] MEDS: CALCIUM CARBONATE CHEW 500 MG TABLET PO SCH ×2 (13:46→21:11)
[2020-07-28] MEDS: FAMOTIDINE 20 MG TABLET PO SCH (13:46)
[2020-07-28] MEDS: methylPREDNISolone SOD SUC 40 MG/1 ML VIAL IV SCH ×2 (13:46→21:10)
[2020-07-28] MEDS: METOPROLOL TARTRATE 25 MG TABLET PO SCH ×2 (13:46→21:10)
[2020-07-29] MEDS: ALBUTEROL/IPRATROPIUM 3 ML NEB RESP TX SCH ×3 (00:09→12:59)
[2020-07-29] MEDS: MELATONIN 3 MG TABLET PO PRN (01:29)
[2020-07-29] MEDS: CLINDAMYCIN 300 MG CAPSULE PO SCH ×2 (05:53→14:44)
[2020-07-29] MEDS ORDERED: TUBERCULIN SKIN TEST 0.1 ML SYRINGE INTRADERM ONE (09:27)
[2020-07-29] MEDS: GABAPENTIN 300 MG CAPSULE PO SCH ×2 (09:52→14:44)
[2020-07-29] MEDS: METOPROLOL TARTRATE 25 MG TABLET PO SCH (09:52)
[2020-07-29] MEDS: HEPARIN 5,000 UNIT/1 ML VIAL SUBCUT SCH (09:53)
[2020-07-29] MEDS: FERROUS SULFATE 325 MG TABLET PO SCH ×2 (09:53→17:30)
[2020-07-29] MEDS: FAMOTIDINE 20 MG TABLET PO SCH (09:53)
[2020-07-29] MEDS: ASPIRIN CHEW 81 MG TABLET PO SCH (09:53)
[2020-07-29] MEDS: INSULIN GLARGINE 100 UNIT/ML SUBCUT SCH (09:54)
[2020-07-29] MEDS: INSULIN REGULAR 100 UNIT/ML SUBCUT SCH ×3 (09:54→17:30)
[2020-07-29] MEDS: methylPREDNISolone SOD SUC 40 MG/1 ML VIAL IV SCH (09:54)
[2020-07-29] MEDS: MENTHOL/ZINC OXIDE OINT 71 GM JAR TOP SCH (09:55)
[2020-07-29] MEDS: metOLazone 5 MG TABLET PO SCH (09:55)
[2020-07-29] MEDS: CALCIUM CARBONATE CHEW 500 MG TABLET PO SCH (12:08)
[2020-07-29] MEDS: DICLOFENAC 1.3% PATCH 5/PACK TRANSDERM SCH (12:09)
[2020-07-29] MEDS ORDERED: PANTOPRAZOLE 20 MG TABLET PO SCH (16:00)
[2020-07-29 17:50] VITALS: BP 140/78
== END 2020-07-29 17:22 | disposition swing bed (61) | DRG 673 ==
LOC: EDBD → EDUNIT# → N.ED 03:32 → SUATTDRO 05:27 → N.EDINP 05:27 → N.ICU 08:26 → N.5E 07-08 08:30 → N.CC 07-17 21:41 → N.3E 07-22 11:30
PROVIDERS: ADMIT Family Medicine; ATTEND Internal Medicine

== ENCOUNTER 2020-07-31 14:06 | Observation (INO) ==
[2020-07-31] MEDS ORDERED: NITROGLYCERIN SL 0.4 MG TABLET SL PRN (14:36)
[2020-07-31] MEDS ORDERED: ASPIRIN 325 MG TABLET PO STA (14:36)
[2020-07-31 14:53] LABS: Basophils # 0.1 10*3/uL (0.0-0.2); Eosinophils # 0.4 10*3/uL (0.0-0.87); Eosinophils % 4.3 % (0.00-10.9); Hematocrit 31.6 VOL% (42.0-52.0); Hemoglobin 9.4 GM/DL (14.0-18.0); Immature Granulocytes % 2.1 %; Lymphocytes # 0.7 10*3/uL (1.4-4.0); Lymphocytes % 7.2 % (21.2-54.2); Mean Corpuscular HGB Conc 29.7 GM/DL (32-36); Mean Corpuscular Volume 92.7 FL (87-102); Mean Platelet Volume 9.2 FL (9.6-12.0); Monocytes % 7.7 % (1.7-12.7); Neutrophils % 77.7 % (38.7-73.9); Platelet Count 340 T/CUMM (130-400); Red Blood Count 3.41 MC/CUMM (3.8-5.5); Red Cell Distribution Width 18.3 % (9.3-17.3); White Blood Count 9.4 T/CUMM (4-12)
[2020-07-31 15:10] LABS: Calcium 8.1 MG/DL (8.5-10.1); Osmolality,Calculated 277.5 MOS/KG (273-304); Potassium 3.8 MMOL/L (3.5-5.1)
[2020-07-31] MEDS ORDERED: ACETAMINOPHEN 325 MG TABLET PO PRN (16:32)
[2020-07-31] MEDS ORDERED: ONDANSETRON 4 MG/2 ML VIAL IV PRN (16:32)
[2020-07-31] MEDS ORDERED: DEXTROSE 50% 25 GM/50 ML VIAL IV PRN ×2 (16:32)
[2020-07-31] MEDS ORDERED: GLUCAGON 1 MG VIAL IM PRN (16:32)
[2020-07-31 16:41] LABS: Total Cells Counted 0
[2020-07-31] MEDS: HEPARIN 5,000 UNIT/1 ML VIAL SUBCUT SCH (21:00)
[2020-07-31] MEDS: INSULIN LISPRO 100 UNIT/ML SUBCUT SCH (21:00)
[2020-08-01] MEDS: HEPARIN 5,000 UNIT/1 ML VIAL SUBCUT SCH ×3 (01:02→20:01)
[2020-08-01 06:04] LABS: Basophils # 0.1 10*3/uL (0.0-0.2); Eosinophils # 0.4 10*3/uL (0.0-0.87); Eosinophils % 4.9 % (0.00-10.9); Hematocrit 31.5 VOL% (42.0-52.0); Hemoglobin 9.3 GM/DL (14.0-18.0); Immature Granulocytes % 1.6 %; Immature Granulocytes Absolute 0.13 #; Lymphocytes # 0.8 10*3/uL (1.4-4.0); Lymphocytes % 10.2 % (21.2-54.2); Mean Corpuscular HGB Conc 29.5 GM/DL (32-36); Mean Corpuscular Volume 92.4 FL (87-102); Monocytes % 9.9 % (1.7-12.7); Neutrophils % 72.4 % (38.7-73.9); Platelet Count 321 T/CUMM (130-400); Red Blood Count 3.41 MC/CUMM (3.8-5.5); Red Cell Distribution Width 18.4 % (9.3-17.3); White Blood Count 8.1 T/CUMM (4-12)
[2020-08-01 06:32] LABS: Calcium 7.9 MG/DL (8.5-10.1); Osmolality,Calculated 281.2 MOS/KG (273-304); Potassium 3.9 MMOL/L (3.5-5.1); Thyroid Stimulating Hormone 3.65 uIU/ml (0.358-3.74)
[2020-08-01 06:37] LABS: Troponin I 0.046 NG/ML (0.00-0.045)
[2020-08-01] MEDS: PANTOPRAZOLE 40 MG TABLET PO SCH (08:08)
[2020-08-01] MEDS: INSULIN LISPRO 100 UNIT/ML SUBCUT SCH ×4 (08:08→20:45)
[2020-08-01] MEDS ORDERED: HEPARIN 10,000 UNIT/10 ML VIAL IV SCH (10:45)
[2020-08-01] MEDS: KETOROLAC 30 MG/1 ML VIAL IV SCH ×2 (16:00→20:46)
[2020-08-02] MEDS: KETOROLAC 30 MG/1 ML VIAL IV SCH (00:28)
[2020-08-02] MEDS: HEPARIN 5,000 UNIT/1 ML VIAL SUBCUT SCH ×2 (00:28→08:55)
[2020-08-02 06:44] LABS: Calcium 7.6 MG/DL (8.5-10.1); Potassium 3.7 MMOL/L (3.5-5.1)
[2020-08-02 07:20] LABS: Basophils # 0.1 10*3/uL (0.0-0.2); Basophils % 0.9 % (0.0-0.8); Eosinophils # 0.5 10*3/uL (0.0-0.87); Eosinophils % 5.4 % (0.00-10.9); Hematocrit 33.7 VOL% (42.0-52.0); Hemoglobin 9.4 GM/DL (14.0-18.0); Immature Granulocytes % 2.2 %; Immature Granulocytes Absolute 0.19 #; Lymphocytes # 0.9 10*3/uL (1.4-4.0); Lymphocytes % 10.5 % (21.2-54.2); Mean Corpuscular HGB Conc 27.9 GM/DL (32-36); Mean Corpuscular Volume 95.2 FL (87-102); Mean Platelet Volume 9.3 FL (9.6-12.0); Monocytes % 9.5 % (1.7-12.7); Neutrophils % 71.5 % (38.7-73.9); Platelet Count 276 T/CUMM (130-400); Red Blood Count 3.54 MC/CUMM (3.8-5.5); Red Cell Distribution Width 18.6 % (9.3-17.3); White Blood Count 8.6 T/CUMM (4-12)
[2020-08-02 07:41] LABS: Platelet Estimate Normal
[2020-08-02 07:42] LABS: Anisocytosis 1+; Basophilic Stippling Slight; Poikilocytosis Slight; Polychromasia Slight
[2020-08-02] MEDS: INSULIN LISPRO 100 UNIT/ML SUBCUT SCH ×2 (08:31→12:43)
[2020-08-02] MEDS: PANTOPRAZOLE 40 MG TABLET PO SCH (08:56)
[2020-08-02 13:56] VITALS: BP 145/79
== END 2020-08-02 16:26 | disposition home health service (06) ==
LOC: EDBD → EDUNIT# → N.ED 14:06 → N.EDINP 14:06 → N.TELEN 17:55
PROVIDERS: ADMIT Internal Medicine; ATTEND Internal Medicine